=== PATIENT | female | born 1960 | race Caucasian/White ===

== ENCOUNTER → 2023-03-03 13:15 | Outpatient (BNVA) | payer SELFPAY | PROVIDERS: Visit Provider Emergency Medicine | DX: R51.9 Headache, unspecified (principal); K11.20 Sialoadenitis, unspecified | CPT/HCPCS: 87426 ==

== ENCOUNTER → 2023-05-03 09:57 | Outpatient (BNVA) | payer OTHER, SELFPAY | PROVIDERS: PCP Family Medicine; Visit Provider Student in an Organized Health Care Education/Training Program | DX: M25.551 Pain in right hip (principal); M25.552 Pain in left hip; M70.62 Trochanteric bursitis, left hip; M79.7 Fibromyalgia | CPT/HCPCS: 20610; 73522; 99204; J3301; J3490 ==

== ENCOUNTER 2023-05-24 19:55 | Inpatient (IN) | payer OTHER, SELFPAY ==
[2023-05-24 19:56] VITALS: BMI 26.9
--- NOTE | 2023-05-24 19:57 | XRR_ITS ---
PROCEDURE INFORMATION: Exam: XR Left Wrist Exam date and time: 05/24/2023 8:15 PM Age: 63 years old Clinical indication: Injury or trauma; Fall; Other: Possible dislocation TECHNIQUE: Imaging protocol: Radiologic exam of the left wrist. Views: 3 or more views. COMPARISON: No relevant prior studies available. FINDINGS: Bones/joints: Comminuted and impacted fracture of the distal left radius with mild radial displacement of the major fracture fragment. Soft tissues: Surrounding soft tissue swelling. XR/XR wrist LT min 3V* [id number] IMPRESSION: Comminuted and impacted fracture of the distal left radius with mild radial displacement of the major fracture fragment.
--- NOTE | 2023-05-24 19:59 | XRR_ITS ---
PROCEDURE INFORMATION: Exam: XR Chest Exam date and time: 05/24/2023 8:15 PM Age: 63 years old Clinical indication: Injury or trauma; Fall; Other: Possible dislocation TECHNIQUE: Imaging protocol: Radiologic exam of the chest. Views: 1 view. COMPARISON: No relevant prior studies available. FINDINGS: Lungs: Hypoinflation of the lungs. Minimal left lower lobe infiltrate or atelectasis. Pleural spaces: Unremarkable. No pleural effusion. No pneumothorax. Heart/Mediastinum: Mild cardiomegaly. Bones/joints: Unremarkable. XR/XR chest 1V portable [id number] IMPRESSION: Hypoinflation of the lungs. Minimal left lower lobe infiltrate or atelectasis. Correlate for infection clinically.
[2023-05-24 20:00] VITALS: BP 125/80; PULSE 91; RESP 23; TEMP 36.6; O2SAT 92
--- NOTE | 2023-05-24 20:00 | ED_ITS ---
HPI - Extremity Problem 2 General: Chief complaint: Extremity Injury, Upper Stated complaint: Fall, Compound fx Time Seen by Provider: 05/24/23 19:57 Source: patient and EMS Mode of arrival: EMS Limitations: no limitations History of Present Illness: 63-year-old female that states she did t lydia her sleeping medicine tonight she got up out of bed and fell. She landed on her left wrist has obvious deformity to the left wrist. She denies any other injuries denies hitting her head no no loss of consciousness patient is answering all my questions appropriately. Associated symptoms: Deny chest pain, fever(s) or rash Review of Systems 2 Const: Denies: fever(s), chills, body aches or change in appetite ENMT: Denies: throat pain or dental pain Card: Denies: chest pain Resp: Denies: dyspnea GI: Denies: abdominal pain, nausea, vomiting or diarrhea Musc: Denies: neck pain or back pain Skin/Breast: Denies: rash Neuro: Denies: headache(s) PFSH ED 2 PFSH: Medical History (Updated 05/24/23 @ 21:10 by Mateusz Williamson MD) Right wrist fracture Hypertension Hypercholesterolemia Osteoporosis Surgical History (Updated 05/24/23 @ 21:10 by Mateusz Williamson MD) S/P appendectomy H/O: hysterectomy Social History Smoking and tobacco/nicotine status: current every day tobacco/nicotine user Alcohol intake: current Alcohol intake frequency: few times a month Physical Exam 2 Const: COMMON NORMALS: patient oriented x3 and healthy appearing HENMT: COMMON NORMALS: normocephalic and atraumatic HEAD & SCALP: n ormocephalic and atraumatic Eye: COMMON NORMALS: EOMs intact bilaterally OTHER: pupil dilation to left pupil hx of cataract surgery Neck/C-Spine: COMMON NORMALS: full ROM and supple Chest: COMMONS NORMALS: normal inspection of the chest and normal palpation of entire chest wall Resp: COMMON NORMALS: normal respiratory effort, No retractions, No use of accessory muscles and clear to auscultation bilaterally AUSCULTATION: clear to auscultation bilaterally Cardio: COMMON NORMALS: regular rate, regular rhythm and No murmurs present (Cardio) RATE: regular rate RHYTHM: regular rhythm GI: COMMON NORMALS: Normal to inspection, nondistended, normoactive bowel sounds present, Soft to palpation, non-tender and no masses PALPATION: Yes Soft to palpation Extremity: COMMON NORMALS: full ROM NARRATIVE EXTREMITY EXAM: Obvious deformity to left wrist with what appears to be a open fracture Neuro: COMMON NORMALS: patient oriented x3, moves all extremities and no focal motor deficits Psych: COMMON NORMALS: mental status grossly normal, Normal thought process present and cooperative THOUGHT PROCESS: Normal thought process present Skin: COMMON NORMALS: no rashes or lesions noted and no wounds GENERAL SKIN EXAM: no rashes or lesions noted Course 2 Vital Signs: Vital signs: Vital Signs Temperature 97.8 F 05/24/23 20:00 Pulse Rate 91 05/24/23 20:00 Respiratory Rate 20 H 05/24/23 20:36 Blood Pressure 125/80 05/24/23 20:00 Pulse Oximetry 95 05/24/23 20:36 MDM - Extremity (Nontraumatic) Medical Decision Making Patient presents here with an open left wrist fracture no other injuries noted I spoke to Dr. Grider along with hospitalist will admit likely take to the OR in the morning patient given IV antibiotics here. Medical Records I reviewed the patient's medical records. Lab Data I reviewed the patient's lab results. 05/24/23 20:04 05/24/23 20:[address] 05/24/23 20:01 IMPRESSION: No acute intracranial abnormality. Laboratory Results WBC 9.50 10^3/uL (3.29-11.43) 05/24/23 20:04 RBC 3.58 10^6/uL (3.85-5.65) L 05/24/23 20:04 Hgb 11.70 g/dL (11.27-16.99) 05/24/23 20:04 Hct 35.9 % (36-47) L 05/24/23 20:04 MCV 100.3 fl (85-98) H 05/24/23 20:04 MCH 32.7 pg (27-33) 05/24/23 20:04 MCHC 32.6 g/dL (30-55) 05/24/23 20:04 RDW 13.0 % (12.1-15.1) 05/24/23 20:04 Plt Count 196 10^3/cmm (157-399) 05/24/23 20:04 MPV 10.3 fL (7.4-10.4) 05/24/23 20:04 Neut % (Auto) 69.9 % 05/24/23 20:04 Lymph % (Auto) 19.7 % 05/24/23 20:04 [place] % (Auto) 8.5 % 05/24/23 20:04 Eos % (Auto) 1.1 % 05/24/23 20:04 Baso % (Auto) 0.6 % 05/24/23 20:04 Neut # (Auto) 6.64 10^3/uL (1.8-7.7) 05/24/23 20:04 Lymph # (Auto) 1.9 10^3/uL (0.8-4.8) 05/24/23 20:04 [place] # (Auto) 0.8 10^3/uL (0.2-0.9) 05/24/23 20:04 Eos # (Auto) 0.1 10^3/uL (0.0-0.8) 05/24/23 20:04 Baso # (Auto) 0.1 10^3/uL (0.0-0.1) 05/24/23 20:04 Nucleated RBC % (auto) 0 % 05/24/23 20:04 Nucleated RBCs # 0.0 /100WBC 05/24/23 20:04 PT 12.50 SECONDS (12.1-14.9) 05/24/23 20:04 INR 0.91 (0.8-1.2) 05/24/23 20:04 Sodium 137 mmol/L (136-145) 05/24/23 20:04 Potassium 3.4 mmol/L (3.5-5.1) L 05/24/23 20:04 Chloride 99 mmol/L (98-107) 05/24/23 20:04 Carbon Dioxide 27 mmol/L (22-29) 05/24/23 20:04 Anion Gap 14.4 (5-19) 05/24/23 20:04 BUN 19 mg/dL (8-23) 05/24/23 20:04 Creatinine 0.9 mg/dL (0.5-0.9) 05/24/23 20:04 GFR Calculation 63.4 mL/min (90-130) L 05/24/23 20:04 Glucose 110 mg/dL (65-115) 05/24/23 20:04 Calculated Osmolality 287 mOsm/kg (285-295) 05/24/23 20:04 Calcium 8.7 mg/dL (8.5-10.5) 05/24/23 20:04 Total Bilirubin 0.3 mg/dL (0.15-1.2) 05/24/23 20:04 AST 19 U/L (0-32) 05/24/23 20:04 ALT 24 U/L (0-33) 05/24/23 20:04 Alkaline Phosphatase 77 U/L (35-105) 05/24/23 20:04 Total Protein 6.2 g/dL (6.6-8.7) L 05/24/23 20:04 Albumin 3.9 g/dL (3.5-5.2) 05/24/23 20:04 Globulin 2.3 g/dL (1.3-4.6) 05/24/23 20:04 All radiology interpretation(s) finalized by discharge Discharge Plan Discharge Condition: Stable Prescriptions: No Action olmesartan-hydrochlorothiazide 40-25 mg tablet 1 tab PO DAILY amlodipine 10 mg tablet 10 mg PO DAILY paroxetine HCl 10 mg tablet 10 mg PO DAILY ibuprofen 600 mg tablet 600 mg PO Q8H PRN (Reason: pain) Qty: 30 0RF atorvastatin 40 mg tablet 40 mg PO DAILY pantoprazole 40 mg tablet,delayed release (DR/EC) 40 mg PO DAILY czwnswu-qlmo-usczb-oreg-capryl 100 mg-150 mg- 50 mg-150 mg capsule PO Coding Level of Care Code ED [facility] for Evelyn Warren
--- NOTE | 2023-05-24 20:01 | CTR_ITS ---
PROCEDURE INFORMATION: Exam: CT Head Without Contrast Exam date and time: 05/24/2023 8:08 PM Age: 63 years old Clinical indication: Injury or trauma; Fall; Blunt trauma (contusions or hematomas) TECHNIQUE: Imaging protocol: Computed tomography of the head without contrast. Radiation optimization: All CT scans at this facility use at least one of these dose optimization techniques: automated exposure control; mA and/or kV adjustment per patient size (includes targeted exams where dose is matched to clinical indication); or iterative reconstruction. REPORTING DATA: Count of CT and Cardiac NM exams in prior 12 months: This patient has received 0 known CTs and 0 known cardiac nuclear medicine studies in the 12 months prior to the current study. COMPARISON: No relevant prior studies available. RADIATION DOSE METRICS: Total DLP (mGy-cm): 1073.78 FINDINGS: Brain: No acute infarct. No hemorrhage. Unremarkable white matter for age. No mass effect. Cerebral ventricles: No ventriculomegaly. Paranasal sinuses: No significant inflammation. No fluid levels. Mastoid air cells: Visualized mastoid air cells are well aerated. Bones/joints: Unremarkable. No acute fracture. Soft tissues: Unremarkable. CT/CT head wo con* [id number] IMPRESSION: No acute intracranial abnormality.
[2023-05-24 20:08] LABS: Basophils # 0.1 10^3/uL (0.0-0.1); Basophils % 0.6 %; Eosinophils # 0.1 10^3/uL (0.0-0.8); Eosinophils % 1.1 %; Hematocrit 35.9 % (36-47); Lymphocytes # 1.9 10^3/uL (0.8-4.8); Lymphocytes % 19.7 %; Mean Corpuscular HGB Conc 32.6 g/dL (30-55); Mean Corpuscular Hemoglobin 32.7 pg (27-33); Mean Corpuscular Volume 100.3 fl (85-98); Mean Platelet Volume 10.3 fL (7.4-10.4); Monocytes # 0.8 10^3/uL (0.2-0.9); Monocytes % 8.5 %; Neutrophils # 6.64 10^3/uL (1.8-7.7); Neutrophils % 69.9 %; Nucleated Red Blood Cells % 0 %; Platelet Count 196 10^3/cmm (157-399); Red Blood Count 3.58 10^6/uL (3.85-5.65)
[2023-05-24] MEDS: ceFAZolin 2,000 MG in sodium chloride 0.9% (plus) 50 ML 100 MG IV (20:15)
--- NOTE | 2023-05-24 20:15 | ECG_ITS ---
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 Measurements Intervals [place] Rate: 90 P: 66 WA: 118 QRS: 106 QRSD: 145 T: 57 QT: 416 QTc: 509 Interpretive Statements SINUS RHYTHM WITH SHORT WA INTERVAL RIGHT AXIS DEVIATION [QRS AXIS > 100] RIGHT BUNDLE BRANCH BLOCK [120+ ms QRS DURATION, UPRIGHT V1, 40+ ms S IN I/aVL/V4/V5/V6] No previous ECG available for comparison Electronically Signed On 05-25-2023 6:51:24 LARRIMAN HELPER by Harika Peterson M.D. [id number]
--- NOTE | 2023-05-24 20:22 | XRR_ITS ---
PROCEDURE INFORMATION: Exam: XR Left Forearm Exam date and time: 05/24/2023 8:53 PM Age: 63 years old Clinical indication: Injury or trauma; Fall; Other: Possible dislocation; Additional info: Left arm injury TECHNIQUE: Imaging protocol: Radiologic exam of the left forearm. Views: 2 views. COMPARISON: CR (UP EX, ) 05/24/2023 8:15 PM FINDINGS: Bones/joints: Comminuted and impacted fracture of the distal left radius again visible. No additional fracture identified. The radiocarpal articulation appears maintained with no visible dislocation. Soft tissues: Soft tissue swelling again seen about the wrist. XR/XR forearm LT 2V [id number] IMPRESSION: Comminuted and impacted fracture of the distal left radius again visible. No additional fracture identified.
[2023-05-24 20:26] LABS: Alanine Aminotransferase 24 U/L (0-33); Albumin Level 3.9 g/dL (3.5-5.2); Alkaline Phosphatase 77 U/L (35-105); Anion Gap 14.4 (5-19); Aspartate Amino Transferase 19 U/L (0-32); Blood Urea Nitrogen 19 mg/dL (8-23); Calcium 8.7 mg/dL (8.5-10.5); Carbon Dioxide 27 mmol/L (22-29); Chloride 99 mmol/L (98-107); Globulin 2.3 g/dL (1.3-4.6); Glomerular Filtration Rate 63.4 mL/min (90-130); Glucose 110 mg/dL (65-115); Osmolality Calculated 287 mOsm/kg (285-295); Potassium 3.4 mmol/L (3.5-5.1); Sodium 137 mmol/L (136-145); Total Bilirubin 0.3 mg/dL (0.15-1.2); Total Protein 6.2 g/dL (6.6-8.7)
[2023-05-24] MEDS: ondansetron 2 mg/ML SDV 2 mL 4 MG IVP (20:31)
[2023-05-24 20:32] VITALS: BP 126/88; PULSE 95; RESP 23; O2SAT 96
[2023-05-24 20:36] VITALS: RESP 20; O2SAT 95
[2023-05-24] MEDS: morphine 4 mg/mL SDV 1 mL IVP (20:36)
[2023-05-24 21:06] VITALS: BP 115/79; PULSE 83; RESP 26; O2SAT 94
[2023-05-24 21:07] LABS: INR 0.91 (0.8-1.2)
--- NOTE | 2023-05-24 21:09 | P.HP_ITS ---
Providers/Chief Complaint 2 Chief Complaint: Fall, Compound fx History of Present Illness Nahomi Alamo is a 63 year old female who presented to the hospital after sustaining a fall at home. Patient received opioids and was very lethargic at the time of evaluation, is at the bedside stating that Mrs. Alamo fell today in the kitchen when she slipped, he helped her to get up and go to the bedroom, he stepped out for a while to attend a phone call from his work and then he heard a bang at that time when he checked on his she was a bit confused, patient is stating that she did not experience syncope, chest pain shortness of breath nausea vomiting or seizure related episode. She thinks she lost balance and fell. Before this event patient took benzodiazepine/sleeping aid 5 mg. In the ER she has normal CBC, BMP remarkable for hypokalemia otherwise unremarkable, she has been diagnosed with left wrist fracture Orthopedic consulted She will be kept n.p.o. She requires CPAP for her sleep apnea however has not been using at home Review of Systems 2 Const: Denies: fever(s) Eyes: Denies: change in vision ENMT: Denies: throat pain Card: Denies: chest pain Resp: Denies: dyspnea GI: Denies: abdominal pain : Denies: flank pain Musc: Reports: extremity pain Skin/Breast: Denies: rash Medications/Allergies Home Medications Medication Instructions Recorded Confirmed Last Taken Type amlodipine 10 mg tablet 10 mg PO DAILY 03/03/23 05/03/23 Unknown History ibuprofen 600 mg tablet 600 mg PO Q8H PRN pain #30 tabs 03/03/23 05/03/23 Unknown Rx olmesartan 40 1 tab PO DAILY 03/03/23 05/03/23 Unknown History mg-hydrochlorothiazide 25 mg tablet paroxetine HCl 10 mg tablet 10 mg PO DAILY 03/03/23 05/03/23 Unknown History atorvastatin 40 mg tablet 40 mg PO DAILY 05/03/23 05/03/23 Unknown History pantoprazole 40 mg tablet,delayed 40 mg PO DAILY 05/03/23 05/03/23 Unknown History release tumeric 100 mg-erick 150 mg-olive cap PO 05/03/23 05/03/23 Unknown History 50 mg-oreg 150 mg-caprylate capsule Allergies Allergy/AdvReac Type Severity Reaction Status Date / Time amoxicillin Allergy vomiting Uncoded 11/09/23 09:45 PFSH Acute 2 PFSH: Medical History Right wrist fracture Hypertension Hypercholesterolemia Osteoporosis Surgical History S/P appendectomy H/O: hysterectomy Social History Smoking and tobacco/nicotine status: current every day tobacco/nicotine user Alcohol intake: current Alcohol intake frequency: few times a month Vitals/I&O/Wt Last Vital Signs Temp 97.8 F 05/24/23 20:00 Pulse 91 05/24/23 20:00 Resp 20 H 05/24/23 20:36 BP 125/80 05/24/23 20:00 Pulse Ox 95 05/24/23 20:36 Weight last 48 hrs Weight 78.018 kg Physical Exam 2 Narrative: Pleasant cooperative Euvolemic DC 50 Left wrist in a splint Nonfocal neuro exam S1, S2 Currently on 2 L at the bedside Patient is able to answer my questions She is cracking jokes Data 05/24/23 20:04 05/24/23 20:04 A&P Assessment and plan (1) Wrist fracture, left: Plan Wrist fracture Patient sustained 2 falls at home Patient is stating that she drinks alcohol on daily basis but she did not drink today We will check B12 and TSH EKG showing sinus rhythm Patient took benzodiazepine that could have contributed to dizziness and fall We will request echo as well Orthopedics consulted for surgical intervention in the morning We will keep her n.p.o. DVT prophylaxis SCDs Hold antihypertensive regimen in anticipation of surgery in the morning Sinus potassium Full code Occupational Therapy after intervention Attestations 2 Medical Necessity Statement*: More than 2 midnights anticipated Diagnoses Wrist fracture, left S62.102A
--- NOTE | 2023-05-24 21:26 | PC.NURSE ---
2117 - Nidia Garcia RN-OR has been notified of Irrigation & Debridement ORIF Left Wrist with fluoroscopy to be Dr. Groves's first case at 0700 in the morning 05/[address] Groves. Nidia states she will put it on the schedule for 0700 when she comes in & will notify staff of the case.
[2023-05-24 21:30] VITALS: BP 113/79; PULSE 81; RESP 16; O2SAT 93
[2023-05-24 21:53] VITALS: BMI 27.8
[2023-05-24 22:15] LABS: Alcohol Level < 10 mg/dL (0-10)
[2023-05-24 22:24] LABS: Thyroid Stimulating Hormone 5.61 uIU/mL (0.27-4.20)
[2023-05-24] MEDS: sodium chloride 0.9% 1,000 ML 75 ML IV (22:32)
[2023-05-24 23:11] VITALS: BP 116/77; PULSE 72; RESP 15; TEMP 36.8; O2SAT 99
--- NOTE | 2023-05-24 23:52 | PC.NURSE ---
5390- Spoke with Cristine in CT re: Dr. Groves wants fluoroscopy in her 0700 left wrist case in the morning. Cristine said she would pass this information along to the oncoming Radiology who should be here at 0600.
[2023-05-25] VITALS (16 sets, daily range): BP systolic 132–175; BP diastolic 69–106; PULSE 62–91; RESP 16–18; TEMP 36.4–36.8; O2SAT 91–97
--- NOTE | 2023-05-25 | XR_ITS ---
WS: [id number] Left wrist, C ARM fluoroscopy views, 05/25/2023 Clinical Data: or pic, orif left wrist Comparison: Left wrist, 05/24/2023 Findings: Dr. Groves repaired the distal left radial fracture with a plate and screws. Impression: Internal fixation of distal left radial fracture.
[2023-05-25 00:04] LABS: Vitamin B12 596 pg/mL (232-1245)
[2023-05-25] MEDS: HYDROmorphone 1 mg/mL INJ 1 mL 0.4 MG IVP (04:04)
--- NOTE | 2023-05-25 05:48 | PC.NURSE ---
0512- Notified Ysabel Garcia RN-OR that Dr. Groves wants to proceed with the left trigger finger release at [address] Groves wants the left wrist ORIF to be brought down as her second case. Ysabel Garcia verified understanding of the same. Radiology has been notified of the same for fluoroscopy.
[2023-05-25 06:16] LABS: Basophils % 0.3 %; Eosinophils # 0.1 10^3/uL (0.0-0.8); Eosinophils % 0.8 %; Hematocrit 34.5 % (36-47); Lymphocytes # 1.8 10^3/uL (0.8-4.8); Lymphocytes % 18.3 %; Mean Corpuscular HGB Conc 32.2 g/dL (30-55); Mean Corpuscular Hemoglobin 32.1 pg (27-33); Mean Corpuscular Volume 99.7 fl (85-98); Mean Platelet Volume 10.8 fL (7.4-10.4); Monocytes # 0.8 10^3/uL (0.2-0.9); Monocytes % 8.1 %; Neutrophils # 7.27 10^3/uL (1.8-7.7); Neutrophils % 72.2 %; Nucleated Red Blood Cells % 0 %; Platelet Count 206 10^3/cmm (157-399); Red Blood Count 3.46 10^6/uL (3.85-5.65); Red Cell Distribution Width 12.9 % (12.1-15.1); White Blood Count 10.07 10^3/uL (3.29-11.43)
--- NOTE | 2023-05-25 06:52 | P.ANESASSM_ITS ---
Pre-Anesthetic Assessment Height/Weight: Height 1.7 m Weight 83.574 kg Temp Pulse Resp BP Pulse Ox O2 Del Method O2 Flow Rate 98.2 F 80 18 133/84 97 Nasal Cannula 2 05/25/23 03:53 05/25/23 03:53 05/25/23 04:04 05/25/23 03:53 05/25/23 03:53 05/25/23 03:53 05/25/23 03:53 Operation Date: 05/25/23 08:05 Proposed Procedures p ORIF Wrist(Left) - Camille Groves MD Familial anesthetic complications: None Was Beta Hira taken within 24 hours: N/A Was Clonidine taken within 24 hours: N/A Last intake: Intake Last Liquid Date 05/24/23 Last Solid Date 05/24/23 Social Tobacco and No alcohol Exam alert, oriented x 3, clear to auscultation bilaterally and regular rate & rhythm Airway Mallampati: Class I Dentition: full Pulmonary Sleep Apnea CV/HEM Hypertension GI Gastroesophageal Reflux Disease Anesthetic Plan ASA status: 3 Anesthesia: General and Regional (specify below) Risk of > 500 ml blood loss (7ml/kg in children): No Medications/Allergies Home Medications Medication Instructions Recorded Confirmed Last Taken Type amlodipine 10 mg tablet 10 mg PO DAILY 03/03/23 05/03/23 Unknown History ibuprofen 600 mg tablet 600 mg PO Q8H PRN pain #30 tabs 03/03/23 05/03/23 Unknown Rx olmesartan 40 1 tab PO DAILY 03/03/23 05/03/23 Unknown History mg-hydrochlorothiazide 25 mg tablet paroxetine HCl 10 mg tablet 10 mg PO DAILY 03/03/23 05/03/23 Unknown History atorvastatin 40 mg tablet 40 mg PO DAILY 05/03/23 05/03/23 Unknown History pantoprazole 40 mg tablet,delayed 40 mg PO DAILY 05/03/23 05/03/23 Unknown History release tumeric 100 mg-erick 150 mg-olive cap PO 05/03/23 05/03/23 Unknown History 50 mg-oreg 150 mg-caprylate capsule Allergies Allergy/AdvReac Type Severity Reaction Status Date / Time amoxicillin Allergy vomiting Uncoded 05/03/23 09:45 Current Medications Generic Name Dose Route Start Last Admin Trade Name Freq PRN Reason Stop Dose Admin Hydromorphone HCl 0.4 mg 05/24/23 21:49 05/25/23 04:04 Hydromorphone 1 Mg/Ml Inj 1 Ml IVP 0.4 mg Q4H PRN Administration SEVERE PAIN Sodium Chloride 1,000 mls @ 75 mls/hr 05/24/23 21:49 05/24/23 22:32 Sodium Chloride 0.9% IV 75 mls/hr .[id number] DARLINE Administration PFSH Anesthesia Medical History Right wrist fracture Hypertension Hypercholesterolemia Osteoporosis Surgical History S/P appendectomy H/O: hysterectomy Social History Smoking and tobacco/nicotine status: current every day tobacco/nicotine user Alcohol intake: current Alcohol intake frequency: few times a month Data Anesthesia 05/25/23 05:45 05/24/23 20:04 Short CBC 05/24/23 05/25/23 Range/Units 20:04 05:45 WBC 9.50 10.07 (3.29-11.43) 10^3/uL Hgb 11.70 11.10 L (11.27-16.99) g/dL Hct 35.9 L 34.5 L (36-47) % MCV 100.3 H 99.7 H (85-98) fl Plt Count 196 206 (157-399) 10^3/cmm Neut % (Auto) 69.9 72.2 % Neut # (Auto) 6.64 7.27 (1.8-7.7) 10^3/uL BMP 05/24/23 20:04 Sodium 137 Potassium 3.4 L Chloride 99 Carbon Dioxide 27 BUN 19 Creatinine 0.9 Glucose 110 Calcium 8.7 Liver Function 05/24/23 Range/Units 20:04 Total Bilirubin 0.3 (0.15-1.2) mg/dL AST 19 (0-32) U/L ALT 24 (0-33) U/L Alkaline Phosphatase 77 (35-105) U/L Albumin 3.9 (3.5-5.2) g/dL Coags 05/24/23 20:04 PT 12.50 INR 0.91 Cardiac Studies: 2 No Data to Display
[2023-05-25 07:16] LABS: Anion Gap 11.5 (5-19); Blood Urea Nitrogen 17 mg/dL (8-23); C Reactive Protein 7.4 mg/L (0.0-4.9); Calcium 8.5 mg/dL (8.5-10.5); Carbon Dioxide 28 mmol/L (22-29); Chloride 102 mmol/L (98-107); Glomerular Filtration Rate 101.3 mL/min (90-130); Glucose 107 mg/dL (65-115); Osmolality Calculated 288 mOsm/kg (285-295); Potassium 3.5 mmol/L (3.5-5.1); Sodium 138 mmol/L (136-145)
--- NOTE | 2023-05-25 07:26 | ANES.PROC ---
Anesthesia Procedures Procedure/Date: 05/25/23 Nerve Block ^: Nerve Block 1: Main Anesthesia: general anesthesia Time Out Performed: Yes Consent: requested by attending/covering physician, from patient, from other, risks and benefits reviewed and patient agrees to proceed Nerve block location: axillary (L) Anesthesia monitors applied: pulse oximetry, EKG, BP cuff and oxygen Nerve block position: supine Anesthetic Used: ropivicaine 0.5% (30 ml) and with decadron (4 mg) Ultrasound used to: recognize landmarks and visualize and ID brachial plexus Nerve Stimulator Used?: No Interscalene/Femoral BLK: 2 stimuplex 22 g needle used for position and inplane approach, visualize local anesthetic spread and no vascular puncture identified Injection: neg aspiration of heme Patient Tolerated Procedure: well and no complications Complications: none
--- NOTE | 2023-05-25 07:29 | PC.PHAR ---
PT IS IN SURGERY AT THIS TIME. WILL FOLLOW UP LATER IN THE DAY. 05/25/23
--- NOTE | 2023-05-25 07:50 | PM.CONSULT ---
Providers/Reason For Consult Consulting Physician/Specialty*: Camille Groves MD Reason for Consult*: Open left distal radius fracture Requesting Physician: Shae Riley MD Attending Physician: Mateusz Williamson MD History of Present Illness History of Present Illness Nahomi Alamo is a 63 year old female who presented in her usual state of health after sustaining a fall at home. Reportedly, the patient took an yvsr-xgc-lnxpshn cough medication and also had taken her sleep aid. The patient denies a syncopal episode, chest pain, nausea or vomiting, or seizure, but she felt that she lost her balance and fell most likely due to the medication. She presented to the emergency room with an open left distal radius fracture. It appeared to be an inside out type of fracture. Review of Systems Const: Denies: fever(s), chills, body aches or change in appetite Eyes: Denies: change in vision ENMT: Denies: throat pain or dental pain Card: Denies: chest pain Resp: Denies: dyspnea GI: Denies: abdominal pain, nausea, vomiting or diarrhea : Denies: flank pain Musc: Reports: extremity pain; Denies: neck pain or back pain Skin/Breast: Denies: rash Neuro: Denies: headache(s) Medications/Allergies Home Medications Medication Instructions Recorded Confirmed Last Taken Type amlodipine 10 mg tablet 10 mg PO DAILY 03/03/23 05/03/23 Unknown History ibuprofen 600 mg tablet 600 mg PO Q8H PRN pain #30 tabs 03/03/23 05/03/23 Unknown Rx olmesartan 40 1 tab PO DAILY 03/03/23 05/03/23 Unknown History mg-hydrochlorothiazide 25 mg tablet paroxetine HCl 10 mg tablet 10 mg PO DAILY 03/03/23 05/03/23 Unknown History atorvastatin 40 mg tablet 40 mg PO DAILY 05/03/23 05/03/23 Unknown History pantoprazole 40 mg tablet,delayed 40 mg PO DAILY 05/03/23 05/03/23 Unknown History release tumeric 100 mg-erick 150 mg-olive cap PO 05/03/23 05/03/23 Unknown History 50 mg-oreg 150 mg-caprylate capsule Allergies Allergy/AdvReac Type Severity Reaction Status Date / Time amoxicillin Allergy vomiting Uncoded 05/03/23 09:45 Current Medications Generic Name Dose Route Start Last Admin Trade Name Freq PRN Reason Stop Dose Admin Hydromorphone HCl 0.4 mg 05/24/23 21:49 05/25/23 04:04 Hydromorphone 1 Mg/Ml Inj 1 Ml IVP 0.4 mg Q4H PRN Administration SEVERE PAIN Sodium Chloride 1,000 mls @ 75 mls/hr 05/24/23 21:49 05/24/23 22:32 Sodium Chloride 0.9% IV 75 mls/hr .[id number] DARLINE Administration PFSH Acute PFSH: Medical History Right wrist fracture Hypertension Hypercholesterolemia Osteoporosis Surgical History S/P appendectomy H/O: hysterectomy Social History Smoking and tobacco/nicotine status: current every day tobacco/nicotine user Alcohol intake: current Alcohol intake frequency: few times a month Vitals/I&O/Wt Last Vital Signs Temp 97.8 F 05/25/23 06:53 Pulse 70 05/25/23 06:53 Resp 18 05/25/23 06:53 BP 133/69 05/25/23 06:53 Pulse Ox 96 05/25/23 06:53 O2 Del Method Nasal Cannula 05/25/23 06:53 O2 Flow Rate 3 05/25/23 06:53 05/24/23 05/25/23 05/25/23 22:59 06:59 14:59 Intake Total 50 / 50 0 / 50 Balance 50 / 50 0 / 50 Weight last 48 hrs Weight 184 lb 4 oz Weight 178 lb Weight 172 lb Physical Exam Const: COMMON NORMALS: no acute distress, average body habitus, patient oriented x3, no limitations, healthy appearing, alert and well nourished GENERAL APPEARANCE: cooperative; not anxious and not combative ORIENTATION/CONSCIOUSNESS: Yes awake, Yes oriented to person, Yes oriented to place and Yes oriented to time HENMT: COMMON NORMALS: normocephalic and atraumatic HEAD & SCALP: normocephalic and atraumatic Eye: GENERAL EYE: appearance normal, both eyes and all related structures EYELID: eyelids normal Chest: COMMONS NORMALS: normal inspection of the chest Resp: COMMON NORMALS: normal respiratory effort EFFORT & INSPECTION: Yes able to speak in complete sentences and Yes symmetric chest movement Extremity: LEFT UPPER EXTREMITY: Yes wrist (Large splint in place) Left wrist: Yes neurovascular exam (Intact sensation and motor function to the fingers and thumb) Neuro: COMMON NORMALS: patient oriented x3 SENSORIUM/ORIENTATION: Yes alert, Yes oriented to person, Yes oriented to place and Yes oriented to time SPEECH: speech normal GAIT: Yes Normal gait present Psych: ATTITUDE: Yes calm and Yes engaged ACTIVITY/MOTOR BEHAVIOR: Yes appropriate eye contact ATTENTION/CONCENTRATION: Yes attention grossly intact MEMORY/COGNITION: Yes memory grossly intact Skin: COMMON NORMALS: no rashes or lesions noted and turgor normal; negative for no jaundice GENERAL SKIN EXAM: no rashes or lesions noted, turgor normal and no jaundice Data 05/25/23 05:45 05/25/23 05:30 Xray Ortho: My impression: I have personally reviewed and interpreted the patient's left distal radius images. Images demonstrate there is a 100% displaced distal radius fracture with comminution. This is an open fracture. There is no obvious injury other than the distal radius visualized. 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 X-rays were seen and evaluated at that time. The patient's wound was clean, and this was dressed and the patient was admitted overnight for antibiotic therapies and optimization for surgery. She is scheduled today for surgical intervention. Risks and complications were discussed with the patient and her , and consents are signed. Questions were answered. Qualifiers: Encounter type: initial encounter Open fracture type: open type I or II Qualified Code(s): S52.502B - Unspecified fracture of the lower end of left radius, initial encounter for open fracture type I or II; S52.602B - Unspecified fracture of lower end of left ulna, initial encounter for open fracture type I or II Consult Attestations Medical Necessity Statement: Patient requires hospitalization for IV antibiotics following open distal radius fracture. Coding Level of Care Code Acute Code for [facility] Diagnoses Type I or II open fracture of distal end of both radius and ulna of left upper extremity, initial encounter S52.502B; S52.602B Encounter type: initial encounter Open fracture type: open type I or II
[2023-05-25] MEDS: CELEcoxib 200 mg Capsule 400 MG PO (08:04)
[2023-05-25] MEDS: acetaminophen 1,000 MG/100 ML PIGGYBACK 400 MG IV (08:04)
[2023-05-25] MEDS: sodium chloride 0.9% 1,000 ML 30 ML IV (08:04)
[2023-05-25] MEDS: gabapentin 300 mg Capsule PO (08:05)
[2023-05-25] MEDS: ceFAZolin 2,000 MG in sodium chloride 0.9% (plus) 50 ML 100 MG IV ×2 (08:19→15:20)
[2023-05-25] MEDS: ceFAZolin 1,000 mg SDV 10000 MG IRRIGATION (08:58)
[2023-05-25] MEDS: BUPivacaine 0.5% INJ 30 mL INJECTION (08:58)
--- NOTE | 2023-05-25 09:12 | PC.CHAP ---
Pastoral Care Encounter/Spiritual Assessment Type of Contact [] Declined wig comber visit [] Patient/Family/Request visit [] Outpatient visit [] Follow-up visit [] Physician referral [] Code/Alert [] Routine visit [] Staff referral [] Actively dying [] Patient sleeping [x] Family support [] [x] Out of room [] Palliative care [] [] Receiving care in room [] Pre-surgical visit [] Trauma [] Long length of stay [] ICU visit [] Other: Relational/Emotional Strength [] Patient feels connected with others/family/visitors/staff [] Distress [] Loneliness/isolation [] Abandonment Spirituality of Patient [] Person of Ymlene [] Attends Orthodox of their [place] [] Believes in Prayer [] Reads Bible or Amish materials [] There are Spiritual issues to be addressed Char Filter Tank Tender Head Interventions [x] Prayer [x] Active listening [] Non-anxious presence [x] Spiritual/emotional support [] Crisis/trauma care [] Spiritual counseling [] Bereavement support [] Provided bereavement packet [] Provided Bible/devotional materials [] Provided toy/stuffed animal, coloring book to patient or family member [] Provided Communion [] Anointing/[place] [] Salvation [] Completed spiritual assessment [] Other: Impact on Illness or Injury [] Angry [] Fearful [] Anxious [] Often cries [] Exhaustion [] Unable to work [] Unable to attend spiritism [] Unable to walk/stand [] Unable to read [] Unable to drive [] Unable to eat/drink [] Unable to sleep [] Unable to be with family [] Patient intubated [] Other: Summary Time spent with patient Patient in surgery. Prayer with family. 5 min
--- NOTE | 2023-05-25 09:24 | PC.PHAR ---
PT UNABLE TO VERIFY MEDICATIONS AT THIS TIME. VERIFIED CURRENT MEDS WITH KORTNEY MCKEON QUEEN. 05/25/23. WILL FOLLOW UP WITH PT THIS AFTERNOON WHEN BACK FROM SURGERY
--- NOTE | 2023-05-25 10:42 | PM.OP ---
Operative Report Date of procedure: May 25, 2023 Pre-op diagnosis: Open comminuted, angulated, displaced left distal radius fracture Post-op diagnosis: Open comminuted, angulated, displaced left distal radius fracture Post-op findings: Comminution of distal aspect of radius with very minimal bone distal to the fracture site Procedure done: Open reduction internal fixation left comminuted displaced angulated open distal radius fracture with aggressive irrigation and debridement of open fracture Implants: The Gilles distal radius plate extra short intermediate for the right wrist with locking screws and 1 nonlocking screw Specimens removed/disposition: None Surgeon: Camille Groves MD Cambering Machine Operator: [facility] operating room technicians Anesthesia: General (LMA, ASA 3) Estimated blood loss (mL): 1 Tourniquet time (min): 88 (At 250 mill.) IV fluids (mL): 700 Urine output (mL): 0 (No Vieyra) Complications: None Findings: Open distal radius fracture open area of fracture over the distal. The laceration did communicate with the fracture. Condition: stable Disposition: PACU (Then return to floor for postoperative antibiotics) Brief History: Nahomi Alamo is a 63 year old female who presented in her usual state of health after sustaining a fall at home. Reportedly, the patient took an fsiq-gqe-vhuzkwm cough medication and also had taken her sleep aid. The patient denies a syncopal episode, chest pain, nausea or vomiting, or seizure, but she felt that she lost her balance and fell most likely due to the medication. She presented to the emergency room with an open left distal radius fracture. It appeared to be an inside out type of fracture. Procedure: Patient was brought to the operating theater and after undergoing adequate general anesthesia, the splint which was present on the left wrist was removed. Evaluation was accomplished, and there was a laceration approximately 6 cm along the volar lateral aspect of the wrist which was from the area required for open reduction internal fixation. This was noted to be a clean looking wound. The patient had general anesthesia per LMA, ASA 3. The arm was exsanguinated, and the tourniquet was elevated to 250 mmHg for a total tourniquet time of 88 minutes. The patient was also given Ancef 2 g preoperatively prior to her hip arthroplasty. The arm was then prepped and draped with DuraPrep in usual fashion with the arm draped free. A surgical pause was performed. At the time, the surgical pause, we confirmed the site and side of surgery. We also confirmed the patient's identity, appropriate and timely administration of preoperative antibiotics and preoperative surgical markings. Fluoroscopy was used throughout the surgical procedure. The fracture pattern was marked out on the patient's arm with a marker. Incision was then made appropriate to begin slightly distal to the distal end of the radius continuing across the fracture. Fluoroscopy was used to determine appropriate plate size, and this was an extra short intermediate left [place] volar distal radius plate. Dissection continued through skin and soft tissues using a scalpel. Essentially, the fracture made its own plane through the soft tissues. After initial skin incision, we were able to open the soft tissues primarily with just my finger. Elevation was accomplished of soft tissues off the distal radius and radial shaft. Retractors were placed. Of note, the open laceration on the ulnar aspect of the distal radius initially did not appear to communicate with the fracture. Manipulation of the fracture using a [place] was accomplished and we were able to obtain a nearly anatomic reduction, and appropriate size plate was chosen. At this point, attention was directed to irrigation of the fracture. 9 L of fluid containing Ancef were irrigated through the fracture using the pulse lavage. We irrigated both wounds, the surgical 1 and the 1 associated with open fracture. Manipulation of the wound and palpation with a freer demonstrated that there was connection of this wound with the incision site. We irrigated from both the wound laceration and the incision. The fracture was evaluated and small bony fragments were removed from this as well. We were able to nearly anatomically reduce the distal radius at this point, but it was noted that the distal fracture fragment was quite small and was comminuted. The plate chosen was an intermediate with extra short [place] volar plate. This was held in position with a freer elevator and positioning was confirmed with fluoroscopy. Once the fracture was reduced, the plate was pinned in position and subsequently attached with standard AO technique utilizing 1 nonlocking screw and the remainder being locking screws. Fluoroscopy was used throughout the surgical procedure, and once the plate was in appropriate position and all screw holes were filled, the wound was copiously irrigated with half percent bupivacaine plain. This was also injected into the subcutaneous tissues. The fracture was noted to be stable once the plate was in position. Attention was directed to closure. The surgical incision and the laceration were both was irrigated with normal saline containing Ancef as noted above. A Raúl drain was placed into the surgical incision and out the laceration laterally. The lateral wound was closed with 2-0 nylon in an interrupted fashion. This was a interrupted mattress suture, and this was supplemented with an additional staple. Attention was then directed to the surgical incision. It was then closed with combination of 2-0 Monocryl in the subcutaneous tissues followed by skin bernard. The lateral laceration was dressed with Xeroform gauze and fluffed fluffs. OpSite had been placed on the surgical incision. Sterile dressing was then placed consisting of fluffed fluffs, sterile soft roll, a volar splint, and an Michael wrap. The tourniquet was released after 88 minutes. There were no complications. There were no specimens. The procedure was well tolerated. Plan is the patient will be returned to the floor postoperatively for postoperative treatment of her right hip and right wrist fractures. Related Problem List Diagnoses (1) Open fracture of left distal radius and ulna:
[2023-05-25 11:03] LABS: Iron 49 ug/dL (37-145); Percent Saturation 19.5 % (20-50); Total Iron Binding Capacity 251 mcg/dl; Unsaturated Iron Binding 202 ug/dL (112-347)
[2023-05-25] MEDS: acetaminophen 500 mg Tablet 1000 MG PO (11:41)
[2023-05-25] MEDS: CELEcoxib 200 mg Capsule PO (11:42)
--- NOTE | 2023-05-25 12:03 | P.DS_ITS ---
Discharge Providers Date of Admission: 05/24/23 21:17 Date of Discharge: May 25, 2023 Attending Provider at Admission: Mateusz Williamson MD Attending Provider at Discharge: Santiago Guerrero MD Consults: Ortho: Dr. Groves Diagnoses at Discharge Discharge Diagnosis (1) Open fracture of left distal radius and ulna: Status: Acute Qualifiers: Encounter type: initial encounter Open fracture type: open type I or II Qualified Code(s): S52.502B - Unspecified fracture of the lower end of left radius, initial encounter for open fracture type I or II; S52.602B - Unspecified fracture of lower end of left ulna, initial encounter for open fracture type I or II Reason for Visit Reason for Visit: Fall, Compound fx Brief History: History as per HPI: Nahomi Alamo is a 63 year old female who presented to the hospital after sustaining a fall at home. Patient received opioids and was very lethargic at the time of evaluation, is at the bedside stating that Mrs. Alamo fell today in the kitchen when she slipped, he helped her to get up and go to the bedroom, he stepped out for a while to attend a phone call from his work and then he heard a bang at that time when he checked on his she was a bit confused, patient is stating that she did not experience syncope, chest pain shortness of breath nausea vomiting or seizure related episode. She thinks she lost balance and fell. Before this event patient took benzodiazepine/sleeping aid 5 mg Hospital Course Hospital Course Orthopedics was consulted for further management of open comminuted angulated left distal radius fracture. She underwent open duction internal fixation with aggressive irrigation and debridement of open fracture. She tolerated the procedure well. She has been discharged hemodynamically stable condition on pain medications with advised to follow-up with a primary care provider within next [address] Grider on June 06. Her hospitalization was otherwise unremarkable. She is to continue taking all her home medications as before. Physical Exam Narrative: General: No acute distress, AO x3 HEENT: PERRLA, pupils bilaterally equal and reactive Chest: Normal vesicular breath sounds, no added sounds, equal good air entry bilaterally CVS: S1-S2 regular, no murmurs, no tachycardia, no gallops, no rubs Abdomen: Soft, nontender, no organomegaly, bowel sounds present Neuro: No focal deficits, no facial deformity, AO x3, power 5/5 in all limbs Discharge Data Studies Completed and Pending Completed Studies During Hospitalization Category Date Time Status CT head wo con* [id number] Stat Cat Scan 05/24/23 20:01 Completed XR chest 1V portable [id number] Stat Exams 05/24/23 19:59 Completed XR forearm LT 2V [id number] Stat Exams 05/24/23 20:22 Completed XR wrist LT min 3V* [id number] Routine Exams 05/25/23 Completed XR wrist LT min 3V* [id number] Stat Exams 05/24/23 19:57 Completed Pending at discharge Category Date Time Status C-arm Fluoroscopy [id number] Routine Exams 05/25/23 07:45 Taken Complete Blood Count w/Auto AM LABS Lab 05/26/23 04:00 Ordered Comprehensive Metabolic Panel AM LABS Lab 05/26/23 04:00 Ordered Drug Screen, Urine Routine Lab 05/24/23 21:54 Uncollected Folate Level AM LABS Lab 05/26/23 04:00 Ordered Hemoglobin A1C AM LABS Lab 05/26/23 04:00 Ordered Lipid Profile w/VLDL Routine Lab 05/26/23 04:00 Ordered MAG [Magnesium] AM LABS Lab 05/26/23 04:00 Ordered MAG [Magnesium] AM LABS Lab 05/27/23 04:00 Ordered MAG [Magnesium] AM LABS Lab 05/28/23 04:00 Ordered Urinalysis Routine Lab 05/25/23 10:16 Uncollected Radiology Impressions Chest X-Ray 05/24/23 19:59 IMPRESSION: Hypoinflation of the lungs. Minimal left lower lobe infiltrate or atelectasis. Correlate for infection clinically. Head CT 05/24/23 20:01 IMPRESSION: No acute intracranial abnormality. Forearm X-Ray 05/24/23 20:22 IMPRESSION: Comminuted and impacted fracture of the distal left radius again visible. No additional fracture identified. Laboratory Results WBC 10.07 10^3/uL (3.29-11.43) 05/25/23 05:45 RBC 3.46 10^6/uL (3.85-5.65) L 05/25/23 05:45 Hgb 11.10 g/dL (11.27-16.99) L 05/25/23 05:45 Hct 34.5 % (36-47) L 05/25/23 05:45 MCV 99.7 fl (85-98) H 05/25/23 05:45 MCH 32.1 pg (27-33) 05/25/23 05:45 MCHC 32.2 g/dL (30-55) 05/25/23 05:45 RDW 12.9 % (12.1-15.1) 05/25/23 05:45 Plt Count 206 10^3/cmm (157-399) 05/25/23 05:45 MPV 10.8 fL (7.4-10.4) H 05/25/23 05:45 Neut % (Auto) 72.2 % 05/25/23 05:45 Lymph % (Auto) 18.3 % 05/25/23 05:45 [place] % (Auto) 8.1 % 05/25/23 05:45 Eos % (Auto) 0.8 % 05/25/23 05:45 Baso % (Auto) 0.3 % 05/25/23 05:45 Neut # (Auto) 7.27 10^3/uL (1.8-7.7) 05/25/23 05:45 Lymph # (Auto) 1.8 10^3/uL (0.8-4.8) 05/25/23 05:45 [place] # (Auto) 0.8 10^3/uL (0.2-0.9) 05/25/23 05:45 Eos # (Auto) 0.1 10^3/uL (0.0-0.8) 05/25/23 05:45 Baso # (Auto) 0.0 10^3/uL (0.0-0.1) 05/25/23 05:45 Nucleated RBC % (auto) 0 % 05/25/23 05:45 Nucleated RBCs # 0.0 /100WBC 05/25/23 05:45 PT 12.50 SECONDS (12.1-14.9) 05/24/23 20:04 INR 0.91 (0.8-1.2) 05/24/23 20:04 Sodium 138 mmol/L (136-145) 05/25/23 05:30 Potassium 3.5 mmol/L (3.5-5.1) 05/25/23 05:30 Chloride 102 mmol/L (98-107) 05/25/23 05:30 Carbon Dioxide 28 mmol/L (22-29) 05/25/23 05:30 Anion Gap 11.5 (5-19) 05/25/23 05:30 BUN 17 mg/dL (8-23) 05/25/23 05:30 Creatinine 0.6 mg/dL (0.5-0.9) 05/25/23 05:30 GFR Calculation 101.3 mL/min (90-130) 05/25/23 05:30 Glucose 107 mg/dL (65-115) 05/25/23 05:30 Calculated Osmolality 288 mOsm/kg (285-295) 05/25/23 05:30 Calcium 8.5 mg/dL (8.5-10.5) 05/25/23 05:30 Magnesium 2.0 mg/dL (1.7-2.3) 05/25/23 05:30 Iron 49 ug/dL (37-145) 05/25/23 05:30 TIBC 251 mcg/dl 05/25/23 05:30 % Saturation 19.5 % (20-50) L 05/25/23 05:30 Unsat Iron Binding 202 ug/dL (112-347) 05/25/23 05:30 Total Bilirubin 0.3 mg/dL (0.15-1.2) 05/24/23 20:04 AST 19 U/L (0-32) 05/24/23 20:04 ALT 24 U/L (0-33) 05/24/23 20:04 Alkaline Phosphatase 77 U/L (35-105) 05/24/23 20:04 C-Reactive Protein 7.4 mg/L (0.0-4.9) H 05/25/23 05:30 Total Protein 6.2 g/dL (6.6-8.7) L 05/24/23 20:04 Albumin 3.9 g/dL (3.5-5.2) 05/24/23 20:04 Globulin 2.3 g/dL (1.3-4.6) 05/24/23 20:04 Vitamin B12 596 pg/mL (232-1245) 05/24/23 20:04 TSH 5.61 uIU/mL (0.27-4.20) H 05/24/23 20:04 Ethyl Alcohol < 10 mg/dL (0-10) 05/24/23 20:04 Vitals Last Vital Signs Temp 97.6 F 05/25/23 10:48 Pulse 68 05/25/23 11:30 Resp 16 05/25/23 10:48 BP 148/89 05/25/23 11:30 Pulse Ox 93 05/25/23 11:30 O2 Del Method Nasal Cannula 05/25/23 11:30 O2 Flow Rate 2 05/25/23 11:30 Discharge Plan Discharge Patient Disposition: Home Condition: Stable Prescriptions: New oxycodone 5 mg Tablet 5 - 10 mg PO Q4H PRN (Reason: Moderate To Severe Pain) 7 Days Qty: 30 0RF Continued olmesartan-hydrochlorothiazide 40-25 mg tablet 1 tab PO DAILY ibuprofen 600 mg tablet 600 mg PO Q8H PRN (Reason: pain) Qty: 30 0RF lgxfbiu-trmy-mzxqd-oreg-capryl 100 mg-150 mg- 50 mg-150 mg capsule 1 cap PO DAILY carisoprodol 350 mg tablet 350 mg PO TID zolpidem 5 mg tablet 5 mg PO BEDTIME Discharge Orders: Discharge Order (Routine); Ordered 05/25/23 Ordered By: Camille Groves Other Ambulatory Orders: DME: Cane/ Crutches (Order) Location: None Selected Ordered By: Santiago Guerrero Referrals: Remi Hallman MD [Physician] - 05/30/23 10:45 am Camille Groves MD [Physician] - 06/06/23 2:15 pm () Discharge Diet: Cardiac Discharge Activity: Limit activity as instructed Patient Instructions: Oxycodone, Rapid Release (By mouth), Wrist Fracture in Adults (DC), ORIF of a Wrist Fracture (GEN), Opioid Safety Activity Restrictions/Additional Instructions: Ice and elevation to left upper extremity. Keep dressing in place. WIGGLE FINGERS. Discharge Attestations Time Spent in Discharge Care*: greater than 30 min Specific Discharge Activities: educating patient, educating and/or supporting family/caregiver, discussing with pcp/other providers, discussing with field nurse case manager/social workers/dc planners, documenting/other paperwork and evaluating patient/reviewing data Quality Metrics Clinical Quality Measures [ No reported AMI, CVA or VTE this stay] Coding Level of Care Code 02791 Total time (in minutes) for Discharge: 50 Diagnoses Type I or II open fracture of distal end of both radius and ulna of left upper extremity, initial encounter S52.369B; S52.253E Encounter type: initial encounter Open fracture type: open type I or II
--- NOTE | 2023-05-25 13:37 | ANE.PACU2 ---
Inpatient post-anesthesia follow up: Airway intact: Yes Vital signs: Temperature 97.6 F Pulse Rate 62 Respiratory Rate 16 Blood Pressure 138/84 Pulse Oximetry 95 Oxygen Delivery Me thod Nasal Cannula Oxygen Flow Rate 2 Fraction of Inspir ed Oxygen Hydration adequate: Yes Nausea and vomiting: No Pain level: 1 Mental status: Baseline
== END 2023-05-25 17:00 | disposition home or self-care (01) | DRG 512 ==
LOC: ER 21:08 → MEDSURG 21:17
PROVIDERS: Specialist; Admitting Provider Internal Medicine; Emergency Provider Emergency Medicine; Visit Provider Student in an Organized Health Care Education/Training Program
PROC: 0PSJ04Z Reposition Left Radius with Internal Fixation Device, Open Approach (ICD-10-PCS; principal; 2023-05-25 07:55)
DX: S52.502B Unspecified fracture of the lower end of left radius, initial encounter for open fracture type I or II (principal); W06.XXXA Fall from bed, initial encounter; Y92.013 Bedroom of single-family (private) house as the place of occurrence of the external cause; I10 Essential (primary) hypertension; E78.00 Pure hypercholesterolemia, unspecified; M81.0 Age-related osteoporosis without current pathological fracture; F17.210 Nicotine dependence, cigarettes, uncomplicated
CPT/HCPCS: 36415; 70450; 71045; 73090; 73110; 76000; 80048; 80053; 80307; 82607; 83540; 83550; 83735; 84443; 85025; 85610; 86140; 93005; 96365; 96375; 97165; 97530; 99285; A4565; C1713; J0131; J0690; J1100; J1170; J2270; J2371; J2405; J2704; J2795; J3010; J3490; J7030

== ENCOUNTER → 2023-06-06 14:00 | Outpatient (BNVA) | payer OTHER, SELFPAY | PROVIDERS: PCP Family Medicine; Visit Provider Specialist | DX: S52.502E Unspecified fracture of the lower end of left radius, subsequent encounter for open fracture type I or II with routine healing (principal); S52.602E Unspecified fracture of lower end of left ulna, subsequent encounter for open fracture type I or II with routine healing; X58.XXXD Exposure to other specified factors, subsequent encounter | CPT/HCPCS: 73110; 99024 ==

== ENCOUNTER → 2023-09-18 09:25 | Outpatient (BNVA) | payer OTHER, SELFPAY | PROVIDERS: PCP Family Medicine; Visit Provider Physician Assistant | DX: M70.62 Trochanteric bursitis, left hip (principal); M54.16 Radiculopathy, lumbar region | CPT/HCPCS: 99213 ==

== ENCOUNTER → 2023-10-09 14:54 | Outpatient (BNVA) | payer OTHER, SELFPAY | PROVIDERS: PCP Family Medicine; Visit Provider Orthopaedic Surgery | DX: M54.9 Dorsalgia, unspecified (principal); M25.559 Pain in unspecified hip; M48.062 Spinal stenosis, lumbar region with neurogenic claudication | CPT/HCPCS: 72110; 73523; 99204 ==

== ENCOUNTER 2023-11-20 13:24 | Outpatient (CLI) | payer OTHER, SELFPAY ==
--- NOTE | 2023-11-20 13:45 | MR_ITS ---
WS: [id number] MRI LUMBAR SPINE NONCONTRAST HISTORY: Back Pain COMPARISON: None available. TECHNIQUE: Sagittal and axial multisequence imaging is submitted. L3 retrolisthesis by 3 mm. Less than 2 mm retrolisthesis of L4. No acute fractures or marrow edema. M ild disc space narrowing. Conus terminates normally at L1-2 disc level. L1-L2: Minimal facet joint arthritis. No stenosis. L2-L3: Minimal facet joint arthritis. No stenosis. L3-L4: Diffuse annular disc bulging and osteophytic ridging with mild ligamentum flavum and facet art hritis. Small amount of fluid in the facet joints. Mild disc encroachment upon the subarticular reces ses and traversing L4 nerve roots. Mild bilateral subarticular recess and foraminal stenosis. L4-L5: Mild annular disc bulging with encroachment upon the ventral thecal sac and subarticular reces ses. Shallow RIGHT foraminal disc protrusion. Mild central, bilateral subarticular recess and moderat e bilateral foraminal stenosis. L5-S1: Mild annular disc bulge with a RIGHT paracentral disc protrusion. Mild disc contact on the S1 nerve roots, RIGHT greater than LEFT. RIGHT S1 nerve root is being displaced posteriorly. Mild forami nal narrowing. MR/MR lumbar spine wo con* [id number] IMPRESSION: 1. L4 3 retrolisthesis by 3 mm. 2. No fractures. 3. L4-5: Mild central, bilateral subarticular recess and moderate foraminal st enosis due to combination of disc, osteophyte and facet disease. There is an ad ditional shallow RIGHT foraminal disc protrusion. 4. L3-4: Mild subarticular recess and foraminal stenosis. There is slight disc contact and encroachment upon the traversing L4 nerve roots. 5. L5-S1: Small RIGHT paracentral disc protrusion contacting the S1 nerve root . Disc contacts the S1 nerve roots bilaterally, RIGHT greater than LEFT. Mild f oraminal stenosis.
== END 2023-11-20 13:25 | disposition home or self-care (01) ==
LOC: RAD 13:24
PROVIDERS: PCP Family Medicine; Visit Provider Orthopaedic Surgery
DX: M54.9 Dorsalgia, unspecified (principal); M43.16 Spondylolisthesis, lumbar region; M47.816 Spondylosis without myelopathy or radiculopathy, lumbar region; M51.36 Other intervertebral disc degeneration, lumbar region; M48.061 Spinal stenosis, lumbar region without neurogenic claudication; M25.78 Osteophyte, vertebrae; M51.26 Other intervertebral disc displacement, lumbar region; M51.37 Other intervertebral disc degeneration, lumbosacral region; M48.07 Spinal stenosis, lumbosacral region
CPT/HCPCS: 72148

== ENCOUNTER → 2023-11-22 09:18 | Outpatient (BNVA) | payer OTHER, SELFPAY | PROVIDERS: PCP Family Medicine; Visit Provider Anesthesiology Pain Medicine | DX: M48.062 Spinal stenosis, lumbar region with neurogenic claudication (principal); M54.16 Radiculopathy, lumbar region; M43.16 Spondylolisthesis, lumbar region | CPT/HCPCS: 99204 ==

== ENCOUNTER → 2024-05-30 07:21 | Outpatient (BNVA) | payer OTHER, SELFPAY | PROVIDERS: PCP Family Medicine; Visit Provider Emergency Medicine | DX: R68.89 Other general symptoms and signs (principal) | CPT/HCPCS: 87400 ==

== ENCOUNTER 2025-04-11 17:44 | Emergency (ER) | payer OTHER, SELFPAY ==
--- OUTSIDE RECORDS SUMMARY | 2025-04-11 17:49 | XMS_ITS | Patient Health Record ---
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 Role Phone Aminata Escobar Unavailable [phone] NISREENFACUNDO DENSON Unavailable Unavailable REASON FOR REFERRAL No Information MEDICATIONS Medication SIG (Take, Route, Fr equency, Duration) Notes Start Date End Date Status Benicar Active Norvasc Active Lipitor Active Folic Acid Active amLODIPine Besylate Active Augmentin Not-Taking Zofran Active PROBLEMS Problem Type ICD Code Onset Dates Problem Status W/U Status Risk SNOMED Code Notes Problem Cellulitis of left lower limb (L03.116) Active confirmed Cellulitis of left lower limb ([id number] [id number]) PLAN OF TREATMENT No Information Insurance Providers Payer Name Payer Address Payer Phone Subscriber Number Group Number Insured Name Patient Relationship to Insured Coverage Start Date Coverage End Date [facility] [address] [place] [phone] [id number] JOSE LUIS NOGUERA Self - patient is the insured MEDICAL (GENERAL) HISTORY Medical History History ICD Code Fibromyalgia Hypertension Surgical History Surgery Date(Month/Year) Hysterectomy Hospitalization History Reason Date(Month/Year) SEE SURGICAL HX
--- OUTSIDE RECORDS SUMMARY | 2025-04-11 17:49 | XMS_ITS | Patient Health Record ---
Author Organization [facility] Address [address] [place], [place] [id number] Care Team Providers Care [employer] Name Role Phone Marina Castaneda Primary Care Provider Reason For Referral No Information Social History Tobacco Use: Social History Observation Description Date Details (start date - stop date) Never Smoker NA - NA Tobacco Use/Smoking Question Answer Notes Are you a nonsmoker Plan Of Treatment No Information
--- OUTSIDE RECORDS SUMMARY | 2025-04-11 17:50 | XMS_ITS | Data Portability ---
Author Organization [facility] Vanesa Sagastume [facility] Address [address] [address] Care Team Providers Care Brine Supervisor Name Role Phone ED HALLMAN Primary Care Provider [phone] Assessment Encounter Date Assessment Date Assessment LastModified by Organization Details LastModified Time 04/24/2023 04/24/2023 Patient is stable on her current medications. We will provide Ambien for her today. Discussed the potential risk factors of this medication and already has an orthopedic appointment established to discuss hip pain which is likely trochanteric bursitis. Leg pain is likely related to history of fractures with surgery. Patient had normal lab work done approximately 6 months ago. We will see the patient back in 6 months for repeat lab work and annual visit. [email or web address] Not available 04/24/2023 12:23:15 07/16/2024 07/16/2024 Patient presented for medication refill. Patient tolerating medication well at current dose without adverse effects. Refilled as below. Discussed plan with patient, who expressed understanding. We will check routine labs today. Encouraged to the patient to eat a well-balanced diet and exercise regularly. [email or web address] Not available 07/19/2024 10:07:27 Plan of Treatment Reminders Order Date Submit Date Provider Last Modified By Organization Details Last Modified Time Details Appointments None recorded. Lab lipid panel, blood 2024 025 [facility], [address], [facility], [place], [address], 17:38:09 ferritin, serum or plasma 2024 [facility], [address] [facility] , [address], [place], [address], 06:14:12 CMP, serum or plasma 2024 [facility], [address], [address], [place], [address], 17:38:12 CBC 2024 [facility], [address], [address], [place], [address], 17:11:13 Referral None recorded. Procedures None recorded. Surgeries None recorded. Imaging None recorded. Medication Orders varenicline tartrate 0.5 mg (11)-1 mg (42) tablets in a dose pack 2024 [facility] #[id number], [address], [place], [place], [id number], 15:36:46 olmesartan 40 mg-hydrochl orothiazide 25 mg tablet 2024 [facility] #[id number], [address], [place], [place], [id number], 15:33:06 Ambien 5 mg tablet 2024 [facility] #05381, [address], [place], [place], [id number], 15:34:08 pantoprazol e 40 mg tablet,rosie yed release 2024 [facility] #32583, [address], [place], [place], [id number], 16:43:48 atorvastati n 40 mg tablet 2024 025 [facility] #95152, [address], [place], [place], [id number], 5 16:43:51 Symbicort 160 mcg-4.5 mcg/actuati on HFA aerosol inhaler 2024 025 [facility] #70828, [address], [place], [place], [id number], 5 16:43:47 paroxetine 10 mg tablet 2024 025 [facility] #34819, [address], [place], [place], [id number], 5 16:43:48 hydrocodone 5 mg-acetamin ophen 325 mg tablet 2023 024 [facility] #21864, [address], [place], [place], [id number], 4 11:26:28 gabapentin 100 mg capsule 2023 024 [facility]174, [address], [place], [place], [id number], 4 08:00:44 olmesartan 40 mg-hydrochl orothiazide 25 mg tablet 2022 023 [email or web address] [facility]69070, [address], [place], [place], [id number], 5 15:32:10 Ambien 5 mg tablet 2022 023 [email or web address] [facility]79663, [address], [place], [place], [id number], 5 16:13:32 Patient TargetsNo targets recorded. Patient InstructionsNo instructions recorded. Reason for Referral None Reported. Results Created Date Observation Date Name Description Value Unit Range Abnormal Flag Note LastModifiedBy Organization Detail LastModifiedTime 07/16/1907/16/2024 CBC WBC 7.5 x10 4.0-10 .5 Not Available [facility] [address], [place], [address], 07/16/2024 17:11:13 07/16/1907/16/2024 CBC RBC 3.83 x10 3.50-5 .50 Not Available [facility] [address] [facility] [address] [facility], [place], [address], 07/16/2024 17:11:13 07/16/19 25 07/16/2024 CBC HGB 13.3 g/dL 12.0-1 6.0 Not Available [facility] [address] [facility] [address], [place], [address], 07/16/2024 17:11:13 07/16/19 25 07/16/2024 CBC HCT 37.5 % 37.0-4 7.0 Not Available [facility] [address] [facility] [address] [address], [place], [address], 07/16/2024 17:11:13 07/16/19 25 07/16/2024 CBC MCV 97.9 fL 80.0-9 9.9 Not Available [facility] [address] [facility] [address] [facility] [address], [place], [address], 07/16/2024 17:11:13 07/16/19 25 07/16/2024 CBC MCH 34.6 pg 27.0-3 2.0 high Not Available [facility] [address] [facility] [address] [facility] [address], [place], [address], 07/16/2024 17:11:13 07/16/19 25 07/16/2024 CBC MCHC 35.4 g/dL 32.0-3 6.0 Not Available [facility] [address] [facility] [address], [place], [address], 07/16/2024 17:11:13 07/16/19 25 07/16/2024 CBC RDW 13.4 % 11.5-1 4.5 Not Available [facility] [address] [address], [place], [address], 07/16/2024 17:11:13 07/16/1907/16/2024 CBC plt 277.8 x10 140.0- 451.0 Not Available [facility] [address] [address], [place], [address], 07/16/2024 17:11:13 07/16/1907/16/2024 CBC lymphocytes % 35.4 % 20.0-5 0.0 Not Available [facility] [address] [address], [place], [address], 07/16/2024 17:11:13 07/16/19 25 07/16/2024 CBC granulcytes % 55.3 % 30.0-7 0.0 Not Available [facility] [address] [address], [place], [address], 07/16/2024 17:11:13 07/16/19 25 07/16/2024 CBC monocytes % 7.0 % 2.0-16 .0 Not Available [facility] [address] [address], [place], [address], 07/16/2024 17:11:13 07/16/1907/16/2024 CBC granulcytes# 4.1 x10 Not Sheree ilable [facility] [address] [address], [place], [address], 07/16/2024 17:11:13 07/16/1907/16/2024 CBC lymphocytes # 2.6 x10 Not Available [facility] [address] [address], [place], [address], 07/16/2024 17:11:13 07/16/19 25 07/16/2024 CBC monocytes # 0.5 x10 Not [facility] [address] [address], [place], [address], 07/16/2024 17:11:13 07/16/19 25 07/16/2024 LIPID PROFI LE (FEMA LE) cholesterol 248.0 mg/dL 0.0-20 0.0 high Not Available [facility] [address] [address], [place], [address], 07/16/2024 17:38:09 07/16/19 25 07/16/2024 LIPID PROFI LE (FEMA LE) trig 320.0 mg/dL 0.0-15 0.0 high Not Available [facility] [address] [address], [place], [address], 07/16/2024 17:38:09 07/16/19 25 07/16/2024 LIPID PROFI LE (FEMA LE) HDL - direct 60.0 mg/dL >40.0 Not Available [facility] [address] [address], [place], [address], 07/16/2024 17:38:09 07/16/19 25 07/16/2024 LIPID PROFI LE (FEMA LE) VLDL - direct 64.0 mg/dL Not Available [facility] [address] [address], [place], [address], 07/16/2024 17:38:09 07/16/19 25 07/16/2024 LIPID PROFI LE (FEMA LE) LDL - direct 124.0 mg/dL 0.0-13 0.0 Not Available [facility] [address] [facility], [place], [address], 07/16/2024 17:38:09 07/16/19 25 07/16/2024 CMP (FEMA LE) glucose 97.0 mg/dL 60.0-9 9.0 Not Available [facility] [address] [facility], [place], [address], 07/16/2024 17:38:12 07/16/19 25 07/16/2024 CMP (FEMA LE) BUN (blood urea nitrogen) 14.0 mg/dL 10.0-2 6.0 Not Available [facility] [address] [facility], [place], [address], 07/16/2024 17:38:12 07/16/19 25 07/16/2024 CMP (FEMA LE) creatinine (serum) 0.6 mg/dL 0.4-1. 5 Not Available [facility] [address] [facility] 1, [place], [address], 07/16/2024 17:38:12 07/16/19 25 07/16/2024 CMP (FEMA LE) BUN/creatini ne ratio 23.33 ratio Not Available [facility] [address] [facility] [address], [place], [address], 07/16/2024 17:38:12 07/16/19 25 07/16/2024 CMP (FEMA LE) eGFR calculated 107.3 Not Available [facility] [address] [facility], [place], [address], 07/16/2024 17:38:12 07/16/19 25 07/16/2024 CMP (FEMA LE) total protein 7.7 g/dL 6.0-8. 5 Not Available [facility] [address] [facility], [place], [address], 07/16/2024 17:38:12 07/16/19 25 07/16/2024 CMP (FEMA LE) total bilirubin 0.9 mg/dL 0.2-1. 3 Not Available [facility] [address] [facility], [place], [address], 07/16/2024 17:38:12 07/16/19 25 07/16/2024 CMP (FEMA LE) albumin 4.6 g/dL 3.5-5. 5 Not Available [facility] [address] [facility] [address], [place], [address], 07/16/2024 17:38:12 07/16/19 25 07/16/2024 CMP (FEMA LE) globulin 3.[address] [facility] [address] [facility] [address], [place], [address], 07/16/2024 17:38:12 07/16/19 25 07/16/2024 CMP (FEMA LE) AST (SGOT) 28.0 U/L 0.0-46 .0 Not Available [facility] [address] [facility] [address], [place], [address], 07/16/2024 17:38:12 07/16/19 25 07/16/2024 CMP (FEMA LE) altv (SGPT) 13.0 U/L 13.0-6 9.0 normal Not Available [facility] [address] [facility] [address], [place], [address], 07/16/2024 17:38:12 07/16/19 25 07/16/2024 CMP (FEMA LE) A/G ratio 1.5 ratio Not Available [facility] [address] [facility] 1, [place], [address], 07/16/2024 17:38:12 07/16/19 25 07/16/2024 CMP (FEMA LE) ALP phos 59.0 U/L 30.0-1 40.0 normal Not Available [facility] [address] [facility], [place], [address], 07/16/2024 17:38:12 07/16/19 25 07/16/2024 CMP (FEMA LE) calcium 9.3 mg/dL 8.4-10 .5 Not Available [facility] [address] [facility], [place], [address], 07/16/2024 17:38:12 07/16/19 25 07/16/2024 CMP (FEMA LE) sodium 138.0 mmol/ L 136.0- 145.0 Not Available [facility] [address] [facility] 1, [place], [address], 07/16/2024 17:38:12 07/16/19 25 07/16/2024 CMP (FEMA LE) potassium 5.6 mmol/ L 3.5-5. 1 high Not Available [facility] [address] [facility] 1, [place], [address], 07/16/2024 17:38:12 07/16/19 25 07/16/2024 CMP (FEMA LE) chloride 109.0 mmol/ L 98.0-1 10.0 normal Not Available [facility] [address] [facility], [place], [address], 07/16/2024 17:38:12 07/16/19 25 07/16/2024 CMP (FEMA LE) C02 29.0 mmol/ L 22.0-3 1.0 Not Available [facility] [address] [facility], [place], [address], 07/16/2024 17:38:12 07/16/19 25 07/16/2024 CMP (FEMA LE) anion gap 0.0 calc Not Available [facility] [address], [place], [address], 07/16/2024 17:38:12 07/16/19 25 07/16/2024 CMP (FEMA LE) osmolality 285.5 calc Not Available [facility] [address], [place], [address], 07/16/2024 17:38:12 07/16/19 25 07/18/2024 SMITHA TIN ferritin 81 NG/mL 16-288 normal Not Available [facility] [address], [place], [address], 07/18/2024 06:14:12 02/04/20 25 02/03/2025 COLOG UARD cologuard result reportable NEGATI VE negati ve normal The Colog uard (TM) test was perfo rmed on this speci men. NEGAT MERISSA TEST RESUL T. A negat merissa Colog uard resul t indic ates a low likel ihood that a color ectal cance r (CRC) or advan charli adeno ma (óscar omato us polyp s with more advan charli pre-m align ant featu res) is prese nt. The chanc e that a perso n with a negat merissa Colog uard test has a color ectal cance r is less than 1 in 1500 (nega tive predi ctive value >99.9 %) or has an advan charli adeno ma is less than 5.3% (nega tive predi ctive value 94.7% ). These data are based on a prosp ectiv e cross -sect ional study of 10,00 0 indiv idual s at [facility] risk for color ectal cance r who were scree isaiah with both Colog uard and colon oscop y. (Jennifer Jenkins et al, N Engl J Med 2014; 370(1 4):12 86-12 97) The sukh l value (refe rence range ) for this assay is negat merissa. COLOG UARD RE-SC REENI NG RECOM MENDA TION: Perio dic color ectal cance r scree angela is an impor tant part of preve ntive healt hcare for asymp tomat ic indiv idual s at [facility] risk for color ectal cance r. Follo wing a negat merissa Colog uard resul t, the Ameri can Cance r Socie ty and U.S. Multi -Soci ety Task Force scree angela guide lines recom mend a Colog uard re-sc zara justin inter shaquille of 3 years . Refer ences : Ameri can Cance r Socie ty Guide line for Color ectal Cance r Scree angela: https ://ww w.can cer.o rg/ca ncer/ colon -rect al-ca ncer/ detec tion- diagn osis- stagi ng/ac s-rec ommen datio ns.ht ml.; Blake COOK, Mark moreno CR, Norma AndersK, Color ectal Cance r Scree angela: Recom menda tions for Physi cians and Patie nts from the U.S. Multi -Soci ety Task Force on Color ectal Cance r Scree angela , Am Martita sanznte rolog y 2017; 112:1 016-1 030. TEST DESCR IPTIO N: [place] site algor ithmi c mohit sis of stool DNA-b karla reza with hemog lobin immun oassa y. Quant itati ve value s of indiv idual bioma rkers are not repor table and are not assoc iated with indiv idual bioma rker resul t refer ence range s. Colog uard is inten ded for color ectal cance r scree angela of adult s of eithe r sex, 45 years or older , who are at [facility] for color ectal cance r (CRC) . Colog uard has been appro sola for use by the U.S. FDA. The perfo rmanc e of Colog uard was estab lishe d in a cross secti onal study of [facility] adult s aged 50-84 . Colog uard perfo rmanc e in patie nts ages 45 to 49 years was estim ated by toni-g heberp mohit sis of near- age group s. Colon oscop ies perfo rmed for a posit merissa resul t may find as the most clini mini signi fican t lesio n: color ectal cance r [4.0% ], advan charli adeno ma (incl uding sessi le david rodrigo polyp s great er than or equal to 1cm diame ter) [20%] or non- advan charli adeno ma [31%] ; or no color ectal neopl marcie [45%] . These estim ates are deriv ed from a prosp ectiv e cross -sect ional scree angela study of 0 indiv idual s at [facility] risk for color ectal cance r who were scree isaiah with both Colog uard and colon oscop y. (Jennifer Jenkins et al, N Engl J Med 2014; 370(1 4):12 86-12 97.) Colog uard may produ ce a false negat merissa or false posit merissa resul t (no color ectal cance r or preca ncero us polyp prese nt at colon oscop y follo w up). A negat merissa Colog uard test resul t does not guara ntee the absen ce of CRC or advan charli adeno ma (pre- cance r). The curre nt Colog uard scree angela inter shaquille is every 3 years . (Amer ican Cance r Socie ty and U.S. Multi -Soci ety Task Force ). Colog uard perfo rmanc e data in a 0 patie nt pivot al study using colon oscop y as the refer ence metho d can be [facility]es [facility] locat ion: www.e xactl abs.c om/re sults . Addit ional descr iptio n of the Colog uard test proce ss, warni ngs and preca ution s can be found at www.c adela tellod.c om. Not Available [facility] [address], [place], [address], 02/10/2025 20:13:52 Result Notes None recorded. Problems Name Problem SNOMED Code Status Onset Date Resolution Date Notes Provider Name and Address Organization Details Recorded Time Essential hypertensio n 17112079 Active 2022 Ed Hallman MD [address] [place] [address], [address], [facility] 3 12:05:39 Chronic insomnia 221898569 Active 2022 Ed Hallman MD [address] [place] [address], [address] 5, [facility] 3 12:07:36 Gastroesoph ageal reflux disease 310857252 Active 2022 Ed Hallman MD [address] [place] [address], [address] 5, [facility] 3 12:13:31 Bilateral trochanteri c bursitis 3486957915996 9109 Active 2022 Ed Hallman MD [address] [place] [address], [address], [facility] 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 4 15:54:08 Chronic low back pain 262504914 Active 2023 Ed Hallman MD [address] [place] [address], [address] 5, [facility] 4 11:25:25 Restless legs syndrome 09329804 Active 2024 Ed Hallman MD [address] [place] [address], [address], [facility] 5 16:41:05 Depressive disorder 23106237 Active 2024 Ed Hallman MD [address] [place] [address], [address] 5, [facility] 16:42:13 Hyperlipide dara 61155956 Active 2024 Ed Hallman MD [address] [place] [address], [address] 5, [facility], GeorginaC. 16:42:28 Asthma 814355034 Active 2024 Ed Hallman MD [address] [place] [address], [address], [facility], Vanesa 16:43:02 Smoker 28045334 Active 2024 Ed Hallman MD [address] [place] [address], [address] 5, [facility], LAbbieLAbbieCAbbie 15:35:48 Problem Notes None recorded. Procedures Surgical History Date Name Laterality Status Provider Name and Address Organization Details Recorded Time 02/07/20 25 colonoscopy completed UMU AGUSTIN [address] [place] [address], [address], [facility], L.L.CAbbie 02/12/2025 07:37:21 05/13/20 24 Back Surgery completed Barbi Sahu [facility], LAbbieLAbbieCAbbie 07/16/2024 16:16:36 Fracture Surgery completed Barbirichmond Sahu [facility], LAbbieLAbbieCAbbie 07/16/2024 16:15:29 [facility] KimberleyLAbbieCAbbie 04/24/2023 11:42:10 [facility]onsillectomy [facility] LAbbieLAbbieCAbbie 04/24/2023 11:42:16 Imaging Results None recorded. Procedure Notes None recorded. Medical Equipment None Reported. Allergies No known drug allergies Medications Name Sig Start Date Stop Date Status Note LastModified by Organization Details LastModified Time carisoprodo l 350 mg tablet TAKE 1 TABLET BY MOUTH EVERY 8 HOURS NEEDED FOR SPASM. active Not Available Not Available No t Available atorvastati n 40 mg tablet TAKE 1 TABLET BY MOUTH EVERY DAY active Not Available Not Available No t Available promethazin e-DM 6.25 mg-15 mg/5 mL oral syrup TAKE 10 ML BY MOUTH EVERY 6 HOURS NEEDED FOR COUGH 07/16 completed Not Available Not Available Not Available paroxetine 10 mg tablet TAKE 1 TABLET BY MOUTH EVERY DAY 2024 active Not Available Not Available Not Avai lable hydrocodone 5 mg-acetamin ophen 325 mg tablet TAKE 1 TABLET BY MOUTH EVERY 8 HOURS active Not Available Not Available No t Available prednisone 20 mg tablet TAKE 3 TABLETS BY MOUTH DAILY FOR 5 DAYS 07/16 completed Not Available Not Available Not Available sulfamethox azole 800 mg-trimetho prim 160 mg tablet TAKE 1 TABLET BY MOUTH TWICE DAILY FOR 10 DAYS 12/16 completed Not Available Not Available Not Available tramadol 50 mg tablet TAKE 1 TABLET BY MOUTH TWICE DAILY NEEDED FOR PAIN 07/16 completed Not Available Not Available Not Available methocarbam ol 750 mg tablet 07/16 completed Not Available Not Available Not Available amlodipine 10 mg tablet Take 1 tablet every day by oral route. 07/16 completed Not Available Not Available Not Available hydrocodone 7.5 mg-acetamin ophen 325 mg tablet TAKE 1 TO 2 TABLETS BY MOUTH EVERY 4 TO 6 HOURS NEEDED FOR PAIN. HOLD WITHIN 4 HOURS PLANNED SLEEP. MAX DAILY AMOUNT 6 TABLETS. active Not Available Not Available No t Available pantoprazol e 40 mg tablet,rosie yed release TAKE 1 TABLET BY MOUTH EVERY DAY active Not Available Not Available No t Available ropinirole 0.5 mg tablet TAKE 1/2 TABLET BY MOUTH EVERY NIGHT FOR 2 DAYS. INCREASE TO 1 TABLET EVERY NIGHT 2024 active Not Available Not Available Not Avai lable gabapentin 300 mg capsule TAKE 1 CAPSULE BY MOUTH THREE TIMES DAILY 2024 active Not Available Not Available Not Avai lable zolpidem 5 mg tablet TAKE 1 TABLET BY MOUTH EVERY DAY active Not Available Not Available No t Available gabapentin 100 mg capsule TAKE 1 CAPSULE BY MOUTH THREE TIMES DAILY 03/17 completed Not Available Not Available Not Available levofloxaci n 750 mg tablet TAKE 1 TABLET BY MOUTH DAILY FOR 7 DAYS 07/16 completed Not Available Not Available Not Available methylpredn isolone 4 mg tablets in a dose pack FOLLOW PACKAGE DIRECTION S 03/17 completed Not Available Not Available Not Available albuterol sulfate HFA 90 mcg/actuati on aerosol inhaler INHALE 2 PUFFS BY MOUTH EVERY 4 HOURS NEEDED FOR SHORTNESS OF BREATH OR WHEEZING active Not Available Not Available No t Available oxycodone 5 mg tablet TAKE 1-2 TABLETS BY MOUTH EVERY 4 HOURS NEEDED FOR MODERATE TO SEVERE PAIN FOR 7 DAYS. 03/17 completed Not Available Not Available Not Available olmesartan 40 mg-hydrochl orothiazide 25 mg tablet TAKE 1 TABLET BY MOUTH EVERY DAY active Not Available Not Available No t Available varenicline tartrate 0.5 mg (11)-1 mg (42) tablets in a dose pack TAKE DIRECTED active Not Available Not Available No t Available budesonide- formoterol HFA 160 mcg-4.5 mcg/actuati on aerosol inhaler INHALE 2 PUFFS BY MOUTH TWICE DAILY active Not Available Not Available No t Available albuterol sulf 90 mcg/actuati on breath activated powder inhaler,sen sor Inhale 2 puffs every 4 hours by inhalatio n route as needed. 03/17 completed Not Available Not Available Not Available Vitals Date Recorded Body height Body mass index (BMI) Body weight Body temperature Respiratory rate Heart rate Oxygen saturation Oxygen saturation in Arterial blood by Pulse oximetry Systolic And Diastolic Provider Name and Address Organization Details Last Updated DateTime 5 170.18 cm 26.9 kg/m2 75949.8 9 g 97.4 [degF] 18 /min 73 /min 98 % 98 % 122/76 mm[Hg] Barbi Sahu [facility] 5 16:09:09 Date Recorded Body height Body mass index (BMI) Body weight Oxygen saturation Oxygen saturation in Arterial blood by Pulse oximetry Heart rate Respiratory rate Body temperature Systolic And Diastolic Provider Name and Address Organization Details Last Updated DateTime 4 170.18 cm 26.9 kg/m2 97913.4 5 g 98 % 98 % 88 /min 16 /min 98.2 [degF] 138/74 mm[Hg] Sandy Herman [facility] 4 15:25:33 Date Recorded Body height Body mass index (BMI) Body weight Body temperature Heart rate Oxygen saturation Oxygen saturation in Arterial blood by Pulse oximetry Systolic And Diastolic Provider Name and Address Organization Details Last Updated DateTime 5 170.18 cm 25.5 kg/m2 54962.5 6 g 98 [degF] 94 /min 98 % 98 % 212/124 mm[Hg] Poppy Mendoza [facility] 5 15:13:55 Date Recorded Body height Respiratory rate Body mass index (BMI) Body weight Body temperature Heart rate Oxygen saturation Oxygen saturation in Arterial blood by Pulse oximetry Systolic And Diastolic Provider Name and Address Organization Details Last Updated DateTime 4 170.18 cm 20 /min 27.3 kg/m2 14330.4 7 g 97.8 [degF] 94 /min 95 % 95 % 140/74 mm[Hg] JEANNIE FARFAN [facility] 4 11:18:27 Date Recorded Respiratory rate Body height Body mass index (BMI) Body weight Body temperature Heart rate Oxygen saturation Oxygen saturation in Arterial blood by Pulse oximetry Systolic And Diastolic Provider Name and Address Organization Details Last Updated DateTime 3 20 /min 170.18 cm 26.1 kg/m2 60938.1 3 g 98.2 [degF] 69 /min 97 % 97 % 152/108 mm[Hg] JEANNIE FARFAN [facility] 3 11:46:10 Social History Question Answer Notes LastModified by Organizat ion Details LastModified Time Tobacco Smoking Status Current Every Day Smoker JEANNIE del angel [facility] 04/24/2023 11:43:15 Do You Wear A Helmet When Biking? No Information not available 04/24/2023 Are You Blind Or Do You Have Difficulty Seeing? No Information not available 04/24/2023 What Is Your Level Of Caffeine Consumption? Moderate Information not available 04/24/2023 Are You Deaf Or Do You Have Serious Difficulty Hearing? No Information not available 04/24/2023 What Type Of Diet Are You Following? REGULAR Information not available 04/24/2023 What Is The Highest Grade Or Level Of School You Have Completed Or The Highest Degree You Have Received? [id number] Information not available 04/24/2023 Which Of Your Hands Is Dominant? Right Information not available 04/24/2023 What Was The Date Of Your Most Recent Tobacco Screening? 12/16/2024 [email or web address] Information not available 12/16/2024 Do You Use Your Seat Belt Or Car Seat Routinely? Yes Information not available 04/24/2023 How Much Tobacco Do You Smoke? 0.5 PPD Information not available 04/24/2023 Do You Participate In Social Media? Yes Information not available 04/24/2023 Have You Recently Traveled Abroad? No Information not available 04/24/2023 Do You Have Difficulty Walking Or Climbing Stairs? No Information not available 04/24/2023 Are You Currently In School? No Information not available 04/24/2023 Do You Have Any Dietary Restrictions? No Information not available 04/24/2023 Sex: Unknown Functional Status Question Answer Note LastModified by Organizat ion Details LastModified Time Do you use any illicit or recreational drugs? No Information not available 04/24/2023 What is your level of alcohol consumption? Occasional Information not available 04/24/2023 Are you currently employed? No Information not available 04/24/2023 Do you have transportation difficulties? No Information not available 04/24/2023 Are you able to walk independently without assistance or assistive devices? YESWOREST Information not available 04/24/2023 Do you have difficulty doing errands alone? No Information not available 04/24/2023 Are you able to care for yourself independently? Yes Information not available 04/24/2023 Do you have difficulty dressing, bathing, grooming, or toileting? No Information not available 04/24/2023 What is your exercise level? Occasional Information not available 04/24/2023 Mental Status Question Answer Note LastModified by Organization D etails LastModified Time Do you have difficulty concentrating, remembering or making decisions? No Information no t available 04/24/2023 Family History Relationship Description Onset Age of this Age Resolved Age Notes LastModified by Organization Details LastModified Time Father Hypertensive disorder tgregg Not available 2022 11:41:32 Medical History No medical history recorded. Gynecological HistoryNo gynecological history recorded. Obstetrics History GPAL:G 0 P 0 0 0 0 Past Encounters Encounter ID Performer Location Encounter Start Date Encounter Closed Date Diagnosis/Indication Diagnosis SNOMED-CT Code Diagnosis ICD10 Code Diagnosis IMO Codes Diagnosis Note [id number] Ed Hallman MD [facility] ([facility]) [address] [place] [address] [phone] 04/24/2023 11:30:37 04/24/2023 12:26:00 Essential hypertension 44654022 I10 Chronic insomnia 5564519 04 F51.04 Gastroesop hageal reflux disease 738987037 K21.9 Bilateral trochanteric bursitis 6589389652 7772836 M70.61 M70.62 [id number] Ed Hallman MD [facility]) [address] [place] [address] [id number] 10/18/2023 15:22:13 10/18/2023 16:04:22 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 Start gabapentin . Follow-up if symptoms do not improve. [id number] Ed Hallman MD [facility] ([facility]) [address] [place] [address] [phone] 02/01/2024 11:13:56 02/01/2024 11:37:39 Chronic low back pain 017864732 M54.50 Patient was encouraged to continue to do daily stretching and exercises. Will provide hydrocodon e until she admitted to see Dr. French. Patient would like to proceed with epidural or facet injections . [id number] Ed Hallman MD [facility] ([facility]) [address] [place] [address] [id number] 07/16/2024 15:41:58 07/16/2024 17:20:13 Renewal of prescription 715147377 Z76.0 Essential hypertension 32082042 I10 Blood pressure is doing well on current medication s. Gastroesop hageal reflux disease 537660586 K21.9 Reflux is managed. Restless l egs syndrome 67899256 G25.81 Will check ferritin and blood counts today. If normal will start her on ropinirole Depressive disorder 3548 9007 F32.A Doing well on paroxetine . Hyperlipidemia 16605254 E78.5 Asthma 924304830 J45.90 9 Symptoms are managed with Symbicort. [id number] Ed Hallman MD [facility] ([facility]) [address] [place] [address] [id number] 12/16/2024 15:08:45 12/16/2024 15:39:35 Essential hypertension 84104710 I10 Pressure is significan t elevated. Will restart the losartan and hydrochlor othiazide and have her monitor blood pressure twice daily for the next week. Chronic insomnia 3727160 04 F51.04 Will restart Ambien as this has worked well for her in the past. Smoker 04583749 F17.200 565500 Discussed options and the patient has tried the patches previously and was not effective. The patient would like to proceed with Chantix. With the patient on how to use the medication and smoking cessation. Health Concerns Section Related Observation LastModified by Organization Detai ls LastModified Time None Recorded Concern Status LastModified by Organization Details LastModified Time None Recorded Advance Directives Directive None Recorded Payers Insurance Date Sequence Insurance Name Policy Number Policy Radford Covered Member ID Radford Member ID Guarantor Name 12/13/2024 1 [employer] - [employer] [id number] Nahomi Alamo [id number] Nahomi Alamo Notes Date Note Type Note Provider Name and Address Organization Details Recorded Time 04/24/20 23 text/htm l This is a 63-year-old female that comes in today to establish care. The patient recently moved to the area from [place]. Patient has a history of significant hypertension that has been well managed on her current medications. The biggest concern the patient has today is chronic insomnia. She has been on multiple medications in the past and has found that Ambien seems to work well for her. Patient has a history of reflux well-controlled on PPI. She has been having bilateral lateral hip pain and bilateral lower leg pain. Patient has made a an appointment for evaluation by orthopedics. The patient has a history of bilateral lower leg fractures with ORIF Ed Hallman MD [address] [place] [address], [phone], [facility] 04/24/2023 12:23:30 10/18/19 24 text/htm l General Rash/Skin LesionReported by PatientHPIFor quality, patient reportspainfulandstinging. For associated symptoms, patient reportsnauseaandvomitingbut reportsno feverandno cold symptoms. For severity, patient reportsmoderate. For duration, patient reportshas noted for <1 week. For location, (right ribs, right breast).ROS as noted in the HPI walk in patientpatient is here today for right side/rib/breast pain with rash that started 5 days ago. Ed Hallman MD [address] [place] [address], [phone], [facility] 10/18/2023 16:52:14 02/01/20 24 text/htm l Back PainReported by PatientPt has bilat hip pain going down legs, has seen Dr. Medina, Dr. Garcia, Dr. Redman and sees Dr. French on (/10 -year-old female comes in today with concerns of back pain going into her hips. The patient states the pain goes down her legs. Patient has seen multiple specialist including pain management. The patient was seeing Dr. Redman and has transition to Dr. French but not until February. Patient received hip injection from Dr. Medina. Limited intervention so far has helped her with her pain. Patient request pain medication today until she get into see Dr. French. Patient has tried several pain medications in the past and muscle relaxers but that have been very helpful. Patient states that the oxycodone did help but she felt that it was too strong. Ed Hallman MD [address] [place] [address], [phone], [facility] 02/03/2024 09:23:59 07/16/19 text/htm l This is a 64-year-old female comes in today for routine checkup. Patient is due for labs. Patient states he needs refills on several medications today. Patient feels that her chronic medical issues are stable. The patient is, however, having issues with restless leg. The patient has been on gabapentin in the past that did not help. The patient states that she is tolerating her medications. Ed Hallman MD [address] [place] [address], [phone], [facility], [facility]. 07/19/2024 10:07:39 12/17/19 text/htm l This 64 year old female patient is here today for a follow up on blood pressure. She has been tracking it. Some of her reading areas high as 194/120 and todays reading manually in clinic in 212/124. Patient is wanting to restart blood pressure medication. Patient also wants to start medication to help quit smoking. The patient also would like to restart Ambien to help with sleep since she continues to have problems. Ed Hallman MD [address] [place] [address], [phone], [facility], [place]. 12/17/2024 14:55:49 OBGyn Episode No OBEpisode recorded.
[2025-04-11 17:54] VITALS: BP 163/84; PULSE 96; RESP 18; TEMP 36.4; O2SAT 97; BMI 27.2
--- NOTE | 2025-04-11 17:59 | XRR_ITS ---
PROCEDURE INFORMATION: Exam: XR Right Ankle Exam date and time: 04/11/2025 6:07 PM Age: 65 years old Clinical indication: Pain; Ankle and foot; Right; Prior surgery; Surgery date: 6+ months; Surgery type: RT tibial nailing; Additional info: RT foot/ankle pain after fall x 5 days ago; HX RT tibial nailing (2011) TECHNIQUE: Imaging protocol: Radiologic exam of the right ankle. Views: 3 or more views. COMPARISON: CR XR foot RT min 3V* [id number] 04/11/2025 6:07 PM FINDINGS: Bones/joints: The bones are demineralized. There are healed fractures of the distal tibia and fibula with intact hardware noted in the distal tibia. There is an acute vertically oriented fracture of the distal posterior fibula. Soft tissues: Moderate to marked soft tissue swelling. XR/XR ankle RT min 3V* [id number] IMPRESSION: Acute distal fibular fracture.
--- NOTE | 2025-04-11 17:59 | XRR_ITS ---
PROCEDURE INFORMATION: Exam: XR Right Foot Exam date and time: 04/11/2025 6:07 PM Age: 65 years old Clinical indication: Pain; Ankle and foot; Right; Prior surgery; Surgery date: 6+ months; Surgery type: RT tibial nailing; Additional info: RT foot/ankle pain after fall x 5 days ago; HX RT tibial nailing (2011) TECHNIQUE: Imaging protocol: Radiologic exam of the right foot. Views: 3 or more views. COMPARISON: CR (LOW EXM, ) 04/11/2025 6:07 PM FINDINGS: Bones/joints: Bones are demineralized. Alignment is intact. There is no evidence of acute fracture of the foot. Acute distal fibular fractures noted ported on recent ankle series. Soft tissues: Moderate to marked soft tissue swelling particularly involving the lateral ankle. XR/XR foot RT min 3V* [id number] IMPRESSION: No evidence of acute fracture of the foot.
--- NOTE | 2025-04-11 18:11 | ED_ITS ---
HPI - Extremity Problem General: Chief complaint: Extremity Injury, Lower Stated complaint: pain and swelling in leg/ankle post fall, Time Seen by Provider: 04/11/25 18:05 Source: patient Mode of arrival: ambulatory Limitations: no limitations History of Present Illness: 65-year-old female states that they have had water damage to their kitchen for which she had fell through the floor last night and injured her right ankle. States that today she did not been able to walk on the ankle and is having increased pain and swelling. She states pain is currently a 7 out of 10 she denies any knee pain or any new injuries Related Data Previous Rx's ?Medication ?Instructions ?Recorded ibuprofen 600 mg tablet 600 mg PO Q8H PRN pain #30 t abs 03/03/23 albuterol sulfate 90 mcg/actuation 2 inh inhalation Q4 H PRN shortness 05/30/24 aerosol inhaler of breath or wheezing #6.7 g angelina albuterol sulfate 90 mcg/actuation 2 inh inhalation Q6 H PRN shortness 05/30/24 aerosol inhaler of breath or wheezing #6.7 g angelina sulfamethoxazole 800 1 tab PO BID 10 days #20 tab s 11/27/24 mg-trimethoprim 160 mg tablet hydrocodone 5 mg-acetaminophen 325 1 tab PO Q6H PRN pa in #14 tabs 04/11/25 mg tablet Allergies Allergy/AdvReac Type Severity Reaction Status Date / Time amoxicillin Allergy vomiting Uncoded 11/27/24 12:39 Review of Systems Musc: Reports: extremity pain PFSH ED PFSH: Medical History Right wrist fracture Hypertension Hypercholesterolemia Osteoporosis Surgical History S/P appendectomy H/O: hysterectomy Social History Smoking and tobacco/nicotine status: current every day tobacco/nicotine user Alcohol intake: current Alcohol intake frequency: few times a month Physical Exam Const: COMMON NORMALS: no acute distress, patient oriented x3 and healthy appearing HENMT: COMMON NORMALS: normocephalic and atraumatic HEAD & SCALP: normocephalic and atraumatic Eye: COMMON NORMALS: conjunctivae normal CONJUNCTIVA: Yes conjunctivae normal Neck/C-Spine: COMMON NORMALS: full ROM and supple Chest: COMMONS NORMALS: normal inspection of the chest Resp: COMMON NORMALS: normal respiratory effort Cardio: COMMON NORMALS: regular rate, regular rhythm and No murmurs present (Cardio) RATE: regular rate RHYTHM: regular rhythm Extremity: COMMON NORMALS: full ROM NARRATIVE EXTREMITY EXAM: Swelling tenderness noted right ankle distal pulses sensation intact Neuro: COMMON NORMALS: patient oriented x3, moves all extremities and no focal motor deficits Psych: COMMON NORMALS: mental status grossly normal, Normal thought process present and cooperative THOUGHT PROCESS: Normal thought process present Skin: COMMON NORMALS: no rashes or lesions noted and no wounds GENERAL SKIN EXAM: no rashes or lesions noted Course Vital Signs: Vital signs: Vital Signs Temperature 97.6 F 04/11/25 17:54 Pulse Rate 96 04/11/25 17:54 Respiratory Rate 18 04/11/25 17:54 Blood Pressure 163/84 04/11/25 17:54 Pulse Oximetry 97 04/11/25 17:54 Oxygen Delivery Me thod Room Air 04/11/25 17:54 MDM - Extremity (Nontraumatic) Medical Decision Making Patient presents after a fall did review the x-ray myself she has a distal fibula fracture at this time. Rest of exam is benign no signs of any other major injuries we will place her in a splint she is to be nonweightbearing we will get her crutches we will get her follow-up with podiatry and write her hydrocodone for pain at home she understands agrees to plan she is return if worsening. Medical Records I reviewed the patient's medical records. XR interpretation done by ED provider, pending radiology final review ED provider radiology interpretation(s): xr r ankle: distal fibula fx Discharge Plan Discharge Patient Disposition: Home Clinical Impression: Ankle fracture Qualifiers: Encounter type: initial encounter Fracture type: closed Laterality: right Qu alified Code(s): S82.891A - Other fracture of right lower leg, initial encounter for closed fracture Condition: Stable Prescriptions: New hydrocodone-acetaminophen 5-325 mg tablet 1 tab PO Q6H PRN (Reason: pain) Qty: 14 0RF No Action albuterol sulfate 90 mcg/actuation HFA aerosol inhaler 2 inh inhalation Q6H PRN (Reason: shortness of breath or wheezing) Qty: 6.7 0RF albuterol sulfate 90 mcg/actuation HFA aerosol inhaler 2 inh inhalation Q4H PRN (Reason: shortness of breath or wheezing) Qty: 6.7 0RF sulfamethoxazole-trimethoprim 800-160 mg tablet 1 tab PO BID 10 Days Qty: 20 0RF ibuprofen 600 mg tablet 600 mg PO Q8H PRN (Reason: pain) Qty: 30 0RF Discharge Orders: Discharge ED (Routine); Ordered 04/11/25 Ordered By: Shae Riley Referrals: Remi Hallman MD [Primary Care Provider, Family Practice] Deniz Young DPM [Physician, Podiatry] - 4-7 days Discharge Diet: Advance as tolerated Discharge Activity: Use walker/crutches as instructed Patient Instructions: Ankle Fracture (ED), Opioid Safety Print Language: Arabic Coding Level of Care Code ED Production Or Plant Engineer for Evelyn Warren
[2025-04-11] MEDS: HYDROcodone-acetaminophen 5-325 mg Tablet 1 TAB PO (18:17)
--- NOTE | 2025-04-13 08:20 | DCPLANNER ---
messaged podiatry for er f/u
== END 2025-04-11 19:37 | disposition home or self-care (01) ==
PROVIDERS: Emergency Provider Emergency Medicine; PCP Family Medicine
DX: S82.831A Other fracture of upper and lower end of right fibula, initial encounter for closed fracture (principal); W13.3XXA Fall through floor, initial encounter; I10 Essential (primary) hypertension; Z72.0 Tobacco use
CPT/HCPCS: 73610; 73630; 99283; J9999

== ENCOUNTER 2025-04-16 13:28 | Outpatient (CLI) | payer OTHER, SELFPAY | END 2025-04-16 13:29 | disposition home or self-care (01) | LOC: SPT 13:29 | PROVIDERS: PCP Family Medicine; Visit Provider Podiatrist Foot & Ankle Surgery | DX: Z46.89 Encounter for fitting and adjustment of other specified devices (principal); S82.891D Other fracture of right lower leg, subsequent encounter for closed fracture with routine healing; X58.XXXD Exposure to other specified factors, subsequent encounter | CPT/HCPCS: L4361 ==

== ENCOUNTER → 2025-04-30 14:13 | Outpatient (BNVA) | payer OTHER, SELFPAY | PROVIDERS: PCP Family Medicine; Visit Provider Podiatrist Foot & Ankle Surgery | DX: S82.831A Other fracture of upper and lower end of right fibula, initial encounter for closed fracture (principal); X58.XXXA Exposure to other specified factors, initial encounter | CPT/HCPCS: 73610 ==